=== PATIENT | male | born 1950 | race Caucasian/White ===

== ENCOUNTER → 2023-11-26 17:01 | Outpatient (REF) | payer MEDICARE, OTHER, SELFPAY | LOC: RAD 17:01 | PROVIDERS: ATTENDING PHYSICIAN Internal Medicine | DX: J40 Bronchitis, not specified as acute or chronic (principal) | CPT/HCPCS: 71046 ==

== ENCOUNTER 2024-02-26 13:12 | Emergency (ER) | payer MEDICARE, SELFPAY ==
[2024-02-26 13:13] VITALS: BP 158/80
[2024-02-26 13:31] LABS: % Basophils 0.9 % (0-2); % Immature Granulocytes 0.1 % (0-0.5); % Lymphocytes 19.6 % (20.5-51.1); % Monocytes 9.6 % (1.7-9.3); % Neutrophils 63.8 % (42.2-75.2); Absolute Basophils 0.1 10^3/uL (0-0.2); Absolute Eosinophils 0.5 10^3/uL (0-0.7); Absolute Lymphocytes 1.5 10^3/uL (1.2-3.4); Absolute Monocytes 0.8 10^3/uL (0.1-0.6); Hematocrit 40.2 % (39.0-52.0); Hemoglobin 13.4 g/dL (13.0-18.0); Mean Corp Hgb Conc. 33.3 g/dL (33.0-37.0); Mean Corpuscular Hgb 29.5 pg (27.0-31.0); Mean Corpuscular Volume 88.4 fL (80.0-94.0); Mean Platelet Volume 10.2 fL (7.4-10.4); Nucleated Red Blood Cells % 0 % (-); Platelet Count 160 10^3/uL (130-400); Red Blood Cell Count 4.55 10^6/uL (4.70-6.10); Red Cell Dist. Width 14.3 % (11.5-14.5); White Blood Cell Count 7.8 10^3/uL (4.8-10.8)
[2024-02-26 13:59] LABS: ALT (SGPT) 24 U/L (0-50); AST (SGOT) 24 U/L (17-59); Albumin 4.7 g/dl (3.5-5.0); Alkaline Phosphatase 53 U/L (38-126); Blood Urea Nitrogen 26 mg/dl (9-20); Calcium 9.5 mg/dl (8.4-10.2); Carbon Dioxide 30 mmol/L (22-30); Chloride 104 mmol/L (98-107); Glucose 151 mg/dl (70-99); Potassium 4.6 mmol/L (3.5-5.1); Sodium 142 mmol/L (135-145); Total Bilirubin 0.6 mg/dl (0.2-1.3); eGFR > 60.00
[2024-02-26 15:05] VITALS: BP 133/76
[2024-02-26 15:07] VITALS: BP 133/76
--- NOTE | 2024-02-26 15:14 | ED.GENMED ---
History of Present Illness
<Babatunde Mendez PA-C - Last Filed: 02/26/24 16:38>
General
Chief Complaint: Headache
Source: patient
Time Seen by Provider: 02/26/24 15:08
History of Present Illness
History of Present Illness:
73-year-old male with past medical history of CAD, previous [place], hypertension, hyperlipidemia, peripheral arterial disease presenting to the emergency department for evaluation after he awoke this morning around 5 AM and was doing his usual morning
routine but still felt a little bit tired so went to go lay on his recliner and was then awoken with sensation of tinnitus in his bilateral ears. Patient states throughout the day he has since developed a mild frontal headache and some left-sided
shoulder discomfort prompting him to come to the ER for further evaluation. Symptoms persist although patient notes he did not take anything for his symptoms. Patient notes that he was started on finasteride 3 days ago for prostate issues. He
denies any fevers, chills, rigors focal weakness or numbness, visual disturbances, neck pain or stiffness, traumatic injuries or any other concerns.
Past History
<Babatunde Mendez PA-C - Last Filed: 02/26/24 16:38>
Past History
ED Past Medical History: CAD, COPD, HTN, Hypercholesterolemia, NIDDM and Valvular disease
ED Past Surgical History: Cardiac (CABG), Orthopedic and Other (CEA)
Social History
Tobacco: Smoker
Alcohol: None
Drug: None
Personal:
Living: with family
Review of Systems
<Babatunde Mendez PA-C - Last Filed: 02/26/24 16:38>
Review of Systems
All Other Systems: ROS reviewed and negative except as documented in HPI and ROS
Phy Exam
<Babatunde Mendez PA-C - Last Filed: 02/26/24 16:38>
Physical Exam
Physical Exam:
GENERAL: Alert , in no apparent distress
Head: Normocephalic atraumatic
EYE: conjunctiva clear
NECK: Supple, no significant adenopathy., No carotid bruits, full range of motion without pain
ENT: o/p clr, mmm. TMs clear bilateral, small cerumen in bilateral canals
CARDIAC: Regular rate and rhythm, faint systolic murmur at the right second intercostal space
LUNGS: Clear breath sounds bilaterally, no acute respiratory distress, no wheezes/rales/rhonchi
NEUROLOGICAL: Alert and oriented
SKIN: Warm and dry, skin intact.
MUSCULOSKELETAL: well perfused. Moves all extremities
PSYCH: Normal and appropriate interaction.
Scores
<Babatunde Mendez PA-C - Last Filed: 02/26/24 16:38>
Heart Failure Risk
Heart Failure Risk Score: Not Applicable
Heart Score for Chest Pain Patients
STEMI patient?: Not applicable
Withdrawal Assessment of Alcohol
Withdrawal Assessment Completed?: Not applicable
Course
<Babatunde Mendez PA-C - Last Filed: 02/26/24 16:38>
Orders/Labs/Results
Orders:
Orders
02/26/24 13:17
Electrocardiogram (*1) Urgent
Reason for Study: Chest Pain
EKG- Treatment ONCE
02/26/24 13:23
CMP [Comprehensive Metabolic Panel] Urgent
Complete Blood Count/With Diff Urgent
02/26/24 15:14
CT Head W/o Iv Contrast Urgent
Comment:
Reason For Exam: headache, tinnitus
02/26/24 16:19
Troponin I Urgent
Abnormal Lab Results
02/26/24
13:23
RBC 4.55 L 10^6/uL
(4.70-6.10)
Absolute Monos (auto) 0.8 H 10^3/uL
(0.1-0.6)
Lymphocytes % 19.6 L %
(20.5-51.1)
Monocytes % 9.6 H %
(1.7-9.3)
BUN 26 H mg/dl
(9-20)
Glucose 151 H mg/dl
(70-99)
02/26/24 13:23
02/26/24 13:23
Vital Signs
Initial and Last Documented VS:
Initial Vital Signs
Temp Pulse Resp BP Pulse Ox
98.2 F 80 16 158/80 96
02/26/24 13:13 02/26/24 13:13 02/26/24 13:13 02/26/24 13:13 02/26/24 13:13
Last Documented Vital Signs
Temp Pulse Resp BP Pulse Ox
98.2 F 80 16 153/84 99
02/26/24 13:13 02/26/24 18:31 02/26/24 18:31 02/26/24 18:31 02/26/24 18:31
<Soila Jimenez, [employer] APPRENTICE - Last Filed: 02/26/24 20:47>
Orders/Labs/Results
Orders:
Orders
02/26/24 13:17
Electrocardiogram (*1) Urgent
Reason for Study: Chest Pain
EKG- Treatment ONCE
02/26/24 13:23
CMP [Comprehensive Metabolic Panel] Urgent
Complete Blood Count/With Diff Urgent
02/26/24 15:14
CT Head W/o Iv Contrast Urgent
Comment:
Reason For Exam: headache, tinnitus
02/26/24 16:19
Troponin I Urgent
Abnormal Lab Results
02/26/24
13:23
RBC 4.55 L 10^6/uL
(4.70-6.10)
Absolute Monos (auto) 0.8 H 10^3/uL
(0.1-0.6)
Lymphocytes % 19.6 L %
(20.5-51.1)
Monocytes % 9.6 H %
(1.7-9.3)
BUN 26 H mg/dl
(9-20)
Glucose 151 H mg/dl
(70-99)
02/26/24 13:23
02/26/24 13:23
Vital Signs
Initial and Last Documented VS:
Initial Vital Signs
Temp Pulse Resp BP Pulse Ox
98.2 F 80 16 158/80 96
02/26/24 13:13 02/26/24 13:13 02/26/24 13:13 02/26/24 13:13 02/26/24 13:13
Last Documented Vital Signs
Temp Pulse Resp BP Pulse Ox
98.2 F 80 16 153/84 99
02/26/24 13:13 02/26/24 18:31 02/26/24 18:31 02/26/24 18:31 02/26/24 18:31
<Babatunde Mendez PA-C - Last Filed: 02/26/24 16:38>
MDM/Problems Addressed
Differential Diagnosis Includes:
Tinnitus without specified etiology, carotid aneurysm, infection such as otitis media/externa, atypical ACS presentation
MDM/Problems Addressed:
73-year-old male presenting emergency department for evaluation of tinnitus, headache and left-sided shoulder discomfort that began earlier today with symptoms continuing. Denies any history of similar. Extensive cardiac history and previous
carotid endarterectomy secondary to carotid disease. Exam is reassuring and without any focal findings. Labs have been initiated in triage and are largely unremarkable. I did add on a CT of the head as well as troponin. Reassessment following
Chronic conditions affecting care: DM and CAD
<Soila Jimenez NP - Last Filed: 02/26/24 20:47>
MDM/Problems Addressed
MDM/Problems Addressed:
73-year-old male presenting emergency department for evaluation of tinnitus, headache and left-sided shoulder discomfort that began earlier today with symptoms continuing. Denies any history of similar. Extensive cardiac history and previous
carotid endarterectomy secondary to carotid disease. Exam is reassuring and without any focal findings. Labs have been initiated in triage and are largely unremarkable. I did add on a CT of the head as well as troponin. Reassessment following
6:25 PM:
Received report from GALLITO Lorenzana, patient awaiting head CT
Radiology report read: IMPRESSION: No acute intracranial abnormality noted.
Pt states he feels 'woozy' in his head. No room spinning or lightheadedness.
Flaky dry cerumen in distal ear canals
CN 2-12 intact, finger to nose intact, ambulates well around the room steadily. VSS remain stable, normal. I see no sign of CVA
No focal neurological deficits.
Return instructions reviewed.
He has appointment in 2 days with ENT
<Babatunde Mendez PA-C - Last Filed: 02/26/24 16:38>
*Pulse Oximetry
Patient hypoxic: no
*EKG
Interpreted by ED Provider?: Yes
Heart Rate: 79
Rate: normal
Rhythm: sinus
[place]: normal axis
QRS Pattern: right bundle branch block
Ischemia: no ischemia
<Soila Jimenez [employer] APPRENTICE - Last Filed: 02/26/24 20:47>
*Critical Care Note
Total Time (30-74mins, 75-104mins- exclusive of procedures): Not Applicable
ED Attending Note
<Babatunde Mendez PA-C - Last Filed: 02/26/24 16:38>
-
Portions of this chart may have been created with voice recognition software.� Occasional wrong word or��sound alike� substitutions may have occurred due to the inherent limitations of voice recognition software.
Discharge Plan
Departure
Patient Disposition: Home (Routine Discharge)
Date of Disposition: 02/26/24
Time of Disposition: 18:27
Patient with high blood pressure during this ER visit?: Yes
Condition: Good
Discharge Problem:
Tinnitus
Instructions: Tinnitus (ringing in the ears)
Prescriptions:
No Action
glimepiride 2 MG tablet
2 mg PO BID@0800,1800
dexlansoprazole [Dexilant] 30 MG capsule,biphase delayed releas
60 mg PO DAILY
tamsulosin 0.4 MG capsule
0.4 mg PO QPM
aspirin 81 MG tablet,delayed release (DR/EC)
81 mg PO DAILY
rosuvastatin [Crestor] 40 MG tablet
40 mg PO QPM
ferrous sulfate [FeroSul] 325 MG tablet
325 mg PO DAILY
hydralazine 50 MG tablet
50 mg PO TID
ascorbic acid (vitamin C) [Vitamin C] 500 MG tablet
500 mg PO BID
metoprolol succinate 100 MG tablet extended release 24 hr
100 mg PO BID
clopidogrel 75 MG tablet
75 mg PO DAILY
Jardiance 10 MG tablet
10 mg PO DAILY
nitroglycerin 0.4 MG tablet, sublingual
0.4 mg sublingual [id number] PRN (Reason: chest pain ) 0RF
metformin 1,000 MG tablet
1,000 mg PO BID@0800,1800 Qty: 0 0RF
Hold Instructions: Resume on 06/04/22. HOLD post cath- OK to resume on Sunday 10 in AM
Rx Instructions:
Hold post procedure, resume on Monday 12/04 evening
vitamin D3-folic acid 125 mcg (5,000 unit)-1 mg Tablet
1 tab PO DAILY
coenzyme Q10 100 mg Tablet
100 mg PO QPM
isosorbide mononitrate [isosorbide mononitrate] 30 mg tablet extended release 24 hr
30 mg PO DAILY Qty: 30 5RF
Referrals:
KumarMain Regulo, MD [Family Provider] -
Broderick Day MD [Active] - (ENT)
Activity Restrictions/Additional Instructions:
As we discussed, your head CT shows nothing worrisome.
Your blood work shows nothing worrisome.
Keep your appointment in 2 days with the ENT doctor for the ringing in your ears.
Return here IMMEDIATELY for confusion, difficulty walking, weakness on one side of your body, losing your balance or feeling worse in any way.
Interventions
Interventions:
*Risk Screen - Suicide Last Done: 02/26/24 15:07
*General Assessment Last Done: 02/26/24 13:13
*Neglect/Abuse Screening Last Done: 02/26/24 15:07
ED- Fall Risk Assessment Last Done: 02/26/24 18:40
*ED COVID-19 Vaccine History Last Done: 02/26/24 13:13
*Nursing Disposition Last Done: 02/26/24 18:49
ED- Neurological Assessment Last Done: 02/26/24 15:07
Discharge Date and Time
Discharge Date/Time: 02/26/24 18:49
Print Language: MOLDOVAN
[2024-02-26 16:50] LABS: Troponin I < 0.012 ng/ml
[2024-02-26 17:18] VITALS: BP 140/81
[2024-02-26 18:31] VITALS: BP 153/84
== END 2024-02-26 18:49 | disposition home or self-care (01) ==
LOC: EMR 13:12
PROVIDERS: Emergency Medicine; Physician Assistant Medical; EMERGENCY PHYSICIAN Emergency Medicine; FAMILY PHYSICIAN Internal Medicine
DX: H93.13 Tinnitus, bilateral (principal); M25.512 Pain in left shoulder; R51.9 Headache, unspecified; R42 Dizziness and giddiness; I25.10 Atherosclerotic heart disease of native coronary artery without angina pectoris; I10 Essential (primary) hypertension; E78.00 Pure hypercholesterolemia, unspecified; I73.9 Peripheral vascular disease, unspecified; I45.10 Unspecified right bundle-branch block; J44.9 Chronic obstructive pulmonary disease, unspecified; E11.9 Type 2 diabetes mellitus without complications; F17.200 Nicotine dependence, unspecified, uncomplicated; I25.2 Old myocardial infarction; Z95.1 Presence of aortocoronary bypass graft; Z88.8 Allergy status to other drugs, medicaments and biological substances; Z79.82 Long term (current) use of aspirin
CPT/HCPCS: 99284; 70450; 80053; 84484; 85025; 93005

== ENCOUNTER 2024-03-04 14:05 | Emergency (ER) | payer MEDICARE, SELFPAY ==
[2024-03-04 14:17] VITALS: BP 157/79
--- NOTE | 2024-03-04 16:06 | ED.GENMED ---
History of Present Illness
General
Chief Complaint: Fall
Source: patient
Exam Limitations: none
Time Seen by Provider: 03/04/24 15:41
Nursing documentation reviewed up to this point in time: agreed with
History of Present Illness
History of Present Illness:
Patient is a 73-year-old male who was walking and tripped over a curb fell onto the sidewalk. He did hit his head, his upper lip his right wrist left shoulder and left knee and right elbow. He denies any loss of consciousness. He sustained
abrasions to his upper lip and left knee. His last tetanus under 5 years. He is on Plavix. He denies any headache. Denies any neck pain. He drove himself here.
Past History
Past History
ED Past Medical History: CAD, COPD, HTN, Hypercholesterolemia, NIDDM and Valvular disease
ED Past Surgical History: Cardiac (CABG), Orthopedic and Other (CEA)
Social History
Tobacco: Smoker
Alcohol: None
Drug: None
Personal:
Living: with family
Review of Systems
Review of Systems
Allergies reviewed?: Yes
All Other Systems: ROS reviewed and negative except as documented in HPI and ROS
Constitutional: Reports no symptoms
Respiratory: Reports no symptoms
Cardiac: Reports no symptoms
ABD/GI: Reports no symptoms; Denies nausea or vomiting
: Reports no symptoms
Musculoskeletal: Reports other (Left knee discomfort left shoulder discomfort right wrist/elbow discomfort )
Skin: Reports other (Abrasions)
Neurological: Reports weakness; Denies headache
Endocrine: Reports no symptoms
Hematologic/Lymphatic: Reports no symptoms
Psychiatric: Reports no symptoms
Phy Exam
General Physical Exam
General Presentation: no apparent distress
General age: appears stated age
General Skin: warm and dry
General Habitus: elderly
General Mental: alert
General Hydration: appears well hydrated
ENT Exam
ENT Exam: other (Right upper lip contused with ecchymosis and swelling + abrasion )
Eye Exam
Eye Exam: PERRL and EOMI
Eye Exam General: PERRL: bilateral and EOM intact: bilateral
Pupil Exam: Bilateral: round and reactive
Neurological Exam
Neurological Exam: alert and oriented x3
Musculoskeletal Exam
Musculoskeletal Exam: other (Right wrist swollen and tender throughout left shoulder no obvious swelling or ecchymosis pain with range of motion, no obvious swelling to left knee positive abrasion just below left knee right elbow mildly tender red,
no abrasions full rom )
Skin Exam
Skin Exam: normal color and warm/dry
Psychiatric Exam
Psychiatric Exam: normal mood/affect
Course
Orders/Labs/Results
Orders:
Orders
03/04/24 16:10
CT Head W/o Iv Contrast Urgent
Comment:
Reason For Exam: trauma
Knee, Left 4 or More Views [CR Knee - Left 4 Or More View*] Urgent
Comment:
Reason For Exam: trauma
Shoulder, Left, Trauma CR [CR Shoulder, Trauma - Left] Urgent
Comment:
Reason For Exam: trauma
Wrist, Right 3 Views [CR Wrist - Right Min 3 Views] Urgent
Comment:
Reason For Exam: trauma
03/04/24 16:11
CT Cervical Spine W/o Iv Contr Urgent
Comment:
Reason For Exam: trauma
03/04/24 16:13
Elbow, Right 3 View [CR Elbow - Right Min 3 Views] Urgent
Comment:
Reason For Exam: trauma
03/04/24 17:19
CR Hand - Right Min 3 Views Urgent
Reason For Exam: SWELLING
Vital Signs
Initial and Last Documented VS:
Initial Vital Signs
Temp Pulse Resp BP Pulse Ox
98.6 F 82 14 157/79 96
03/04/24 14:17 03/04/24 14:17 03/04/24 14:17 03/04/24 14:17 03/04/24 14:17
Last Documented Vital Signs
Temp Pulse Resp BP Pulse Ox
98.6 F 82 14 157/79 98
03/04/24 14:17 03/04/24 14:17 03/04/24 14:17 03/04/24 14:17 03/04/24 17:43
MDM/Problems Addressed
Differential Diagnosis Includes:
Not limited to head injury, fractures for sprain versus contusion
MDM/Problems Addressed:
Patient is a 73-year-old male who describes mechanical fall and fell onto his left knee left shoulder right elbow right wrist and hand. He did hit his head and lip. He has bruising to his upper lip small abrasion but no laceration that required
suturing. He denies loss of conscious. He is on Plavix. He presents awake alert no acute distress oriented. No obvious fractures on x-ray. Patient swelling to right wrist but no obvious fracture will place in a universal splint for support and
ice area. He has been evaluated by orthopedics, Dr. Masters in the past will DC back to Ortho if continued pain. He is awake alert no acute distress with a normal neurologic exam.
*Radiology
Radiology exam reviewed: radiology read reviewed
*Pulse Oximetry
Patient hypoxic: no
*Critical Care Note
Total Time (30-74mins, 75-104mins- exclusive of procedures): Not Applicable
ED Attending Note
-
Portions of this chart may have been created with voice recognition software.� Occasional wrong word or��sound alike� substitutions may have occurred due to the inherent limitations of voice recognition software.
Discharge Plan
Departure
Patient Disposition: Home (Routine Discharge)
Date of Disposition: 03/04/24
Time of Disposition: 17:53
Patient with high blood pressure during this ER visit?: Yes
Condition: Fair
Covid-19: Not Applicable
Discharge Problem:
Sprain, Contusion, Abrasion
Instructions: Contusion (DC), Sprain (DC), BLOOD PRESSURE
Prescriptions:
No Action
glimepiride 2 MG tablet
2 mg PO BID@0800,1800
dexlansoprazole [Dexilant] 30 MG capsule,biphase delayed releas
60 mg PO DAILY
tamsulosin 0.4 MG capsule
0.4 mg PO QPM
aspirin 81 MG tablet,delayed release (DR/EC)
81 mg PO DAILY
rosuvastatin [Crestor] 40 MG tablet
40 mg PO QPM
ferrous sulfate [FeroSul] 325 MG tablet
325 mg PO DAILY
hydralazine 50 MG tablet
50 mg PO TID
ascorbic acid (vitamin C) [Vitamin C] 500 MG tablet
500 mg PO BID
metoprolol succinate 100 MG tablet extended release 24 hr
100 mg PO BID
clopidogrel 75 MG tablet
75 mg PO DAILY
Jardiance 10 MG tablet
10 mg PO DAILY
nitroglycerin 0.4 MG tablet, sublingual
0.4 mg sublingual [id number] PRN (Reason: chest pain ) 0RF
metformin 1,000 MG tablet
1,000 mg PO BID@0800,1800 Qty: 0 0RF
Hold Instructions: Resume on 06/04/22. HOLD post cath- OK to resume on Monday 06/04 in AM
Rx Instructions:
Hold post procedure, resume on Monday 12/04 evening
vitamin D3-folic acid 125 mcg (5,000 unit)-1 mg Tablet
1 tab PO DAILY
coenzyme Q10 100 mg Tablet
100 mg PO QPM
isosorbide mononitrate [isosorbide mononitrate] 30 mg tablet extended release 24 hr
30 mg PO DAILY Qty: 30 5RF
Referrals:
Juan Masters MD [Active] -
Main Kumar MD [Family Provider] -
Activity Restrictions/Additional Instructions:
As discussed ice affected areas for the first 24 hours 20 minutes at a time several times a day. You were given a preformed wrist splint for support. Use as needed. Follow-up with family doctor in the next as well as orthopedics if needed peer
return if any worsening of symptoms.
Interventions
Interventions:
*Risk Screen - Suicide Last Done: 03/04/24 14:17
*General Assessment Last Done: 03/04/24 14:17
*Neglect/Abuse Screening Last Done: 03/04/24 14:17
*ED COVID-19 Vaccine History Last Done: 03/04/24 17:42
ED-Musculoskeletal Assessment Last Done: 03/04/24 17:46
ED- Neurological Assessment Last Done: 03/04/24 17:42
ED-Skin Assessment Last Done: 03/04/24 17:45
Discharge Date and Time
Print Language: MALTESE
[2024-03-04 17:41] VITALS: BP 198/98
[2024-03-04 17:42] VITALS: BMI 28.3
[2024-03-04] MEDS: TYLENOL 650 MG PO (17:55)
== END 2024-03-04 18:21 | disposition home or self-care (01) ==
LOC: EMR 14:05
PROVIDERS: EMERGENCY PHYSICIAN Emergency Medicine; FAMILY PHYSICIAN Internal Medicine
DX: S63.501A Unspecified sprain of right wrist, initial encounter (principal); S09.90XA Unspecified injury of head, initial encounter; S00.531A Contusion of lip, initial encounter; S80.212A Abrasion, left knee, initial encounter; S00.511A Abrasion of lip, initial encounter; M25.462 Effusion, left knee; M25.512 Pain in left shoulder; M25.521 Pain in right elbow; M25.531 Pain in right wrist; W10.1XXA Fall (on)(from) sidewalk curb, initial encounter; Y93.01 Activity, walking, marching and hiking; Y92.480 Sidewalk as the place of occurrence of the external cause; I25.10 Atherosclerotic heart disease of native coronary artery without angina pectoris; I10 Essential (primary) hypertension; E78.00 Pure hypercholesterolemia, unspecified; E11.9 Type 2 diabetes mellitus without complications; J44.9 Chronic obstructive pulmonary disease, unspecified; I38 Endocarditis, valve unspecified; K76.0 Fatty (change of) liver, not elsewhere classified; M19.90 Unspecified osteoarthritis, unspecified site; I25.2 Old myocardial infarction; Z95.1 Presence of aortocoronary bypass graft; Z79.02 Long term (current) use of antithrombotics/antiplatelets; Z79.84 Long term (current) use of oral hypoglycemic drugs; Z95.5 Presence of coronary angioplasty implant and graft; Z87.820 Personal history of traumatic brain injury; Z87.891 Personal history of nicotine dependence; Z86.16 Personal history of COVID-19
CPT/HCPCS: 99284; 29125; 70450; 72125; 73030; 73080; 73110; 73130; 73564

== ENCOUNTER → 2024-03-11 10:59 | Outpatient (REF) | payer MEDICARE, SELFPAY | LOC: RAD 10:59 | PROVIDERS: ATTENDING PHYSICIAN Internal Medicine | DX: R52 Pain, unspecified (principal) | CPT/HCPCS: 71101 ==

== ENCOUNTER → 2024-05-07 16:44 | Outpatient (REF) | payer MEDICARE, SELFPAY | LOC: PAVMRI 16:44 | PROVIDERS: ATTENDING PHYSICIAN Orthopaedic Surgery; FAMILY PHYSICIAN Internal Medicine | DX: M25.512 Pain in left shoulder (principal) | CPT/HCPCS: 73221 ==

== ENCOUNTER → 2024-05-12 18:12 | Outpatient (REF) | payer MEDICARE, SELFPAY | LOC: MRI 3T 18:12 | PROVIDERS: ATTENDING PHYSICIAN Specialist; FAMILY PHYSICIAN Internal Medicine | DX: R97.20 Elevated prostate specific antigen [PSA] (principal) | CPT/HCPCS: 72197; A9575 ==

== ENCOUNTER 2024-07-01 18:56 | Outpatient (RCR) | payer MEDICARE, SELFPAY | END 2024-07-01 23:59 | disposition home or self-care (01) | LOC: ROT 18:56 | PROVIDERS: ATTENDING PHYSICIAN Physical Medicine & Rehabilitation; FAMILY PHYSICIAN Internal Medicine; REFERRING PHYSICIAN Orthopaedic Surgery | DX: S86.812D Strain of other muscle(s) and tendon(s) at lower leg level, left leg, subsequent encounter (principal); M54.2 Cervicalgia; F07.81 Postconcussional syndrome; Z73.6 Limitation of activities due to disability; S86.10 Unspecified injury of other muscle(s) and tendon(s) of posterior muscle group at lower leg level; M25.522 Pain in left elbow | CPT/HCPCS: 97010; 97022; 97110; 97112; 97140; 97162; 97166; 97535 ==

== ENCOUNTER 2024-08-01 09:07 | Outpatient (RCR) | payer MEDICARE, SELFPAY | END 2024-08-01 23:59 | disposition home or self-care (01) | LOC: RST 09:07 | PROVIDERS: ATTENDING PHYSICIAN Physical Medicine & Rehabilitation; FAMILY PHYSICIAN Internal Medicine; REFERRING PHYSICIAN Orthopaedic Surgery | DX: M54.2 Cervicalgia (principal); S46.812D Strain of other muscles, fascia and tendons at shoulder and upper arm level, left arm, subsequent encounter; F07.81 Postconcussional syndrome; Z73.6 Limitation of activities due to disability; R26.2 Difficulty in walking, not elsewhere classified; M62.81 Muscle weakness (generalized); R41.89 Other symptoms and signs involving cognitive functions and awareness | CPT/HCPCS: 96125; 97010; 97022; 97035; 97110; 97112; 97129; 97130; 97140 ==

== ENCOUNTER → 2024-08-13 08:25 | Outpatient (REF) | payer MEDICARE, SELFPAY | LOC: HWRCS 08:25 | PROVIDERS: ATTENDING PHYSICIAN Internal Medicine; FAMILY PHYSICIAN Internal Medicine | DX: I25.118 Atherosclerotic heart disease of native coronary artery with other forms of angina pectoris (principal); I10 Essential (primary) hypertension; I45.10 Unspecified right bundle-branch block; R06.09 Other forms of dyspnea | CPT/HCPCS: 93306 ==

== ENCOUNTER → 2024-08-28 08:08 | Outpatient (REF) | payer MEDICARE, SELFPAY ==
[2024-08-28 10:35] LABS: ALT (SGPT) 24 U/L (0-50); AST (SGOT) 20 U/L (17-59); HDL Cholesterol 47 mg/dl; LDL Cholesterol, Calculated 52 mg/dl; Total Cholesterol 146 mg/dl (50-199); Triglyceride 236 mg/dl (10-149); Very Low Density Lipoprotein 47 mg/dl (0-30)
[2024-08-29 09:06] LABS: PSA Total 9.4 ng/mL (0.0-4.0)
== END ==
LOC: RAD 08:08
PROVIDERS: ATTENDING PHYSICIAN Internal Medicine
DX: I73.9 Peripheral vascular disease, unspecified (principal); Z98.890 Other specified postprocedural states; I65.21 Occlusion and stenosis of right carotid artery; I25.118 Atherosclerotic heart disease of native coronary artery with other forms of angina pectoris
CPT/HCPCS: 36415; 80061; 84153; 84154; 84450; 84460; 93880; 93922; 93925

== ENCOUNTER 2024-09-01 07:12 | Outpatient (RCR) | payer MEDICARE, SELFPAY | END 2024-09-01 23:59 | disposition home or self-care (01) | LOC: RST 07:12 | PROVIDERS: ATTENDING PHYSICIAN Physical Medicine & Rehabilitation; FAMILY PHYSICIAN Internal Medicine; REFERRING PHYSICIAN Orthopaedic Surgery | DX: M54.2 Cervicalgia (principal); S46.812D Strain of other muscles, fascia and tendons at shoulder and upper arm level, left arm, subsequent encounter; F07.81 Postconcussional syndrome; Z73.6 Limitation of activities due to disability; R26.2 Difficulty in walking, not elsewhere classified; M62.81 Muscle weakness (generalized); R41.89 Other symptoms and signs involving cognitive functions and awareness | CPT/HCPCS: 97010; 97110; 97129; 97130 ==

== ENCOUNTER 2024-10-03 07:12 | Outpatient (RCR) | payer MEDICARE, SELFPAY | END 2024-10-03 23:59 | disposition home or self-care (01) | LOC: RST 07:12 | PROVIDERS: ATTENDING PHYSICIAN Physical Medicine & Rehabilitation; FAMILY PHYSICIAN Internal Medicine; REFERRING PHYSICIAN Orthopaedic Surgery | DX: M54.2 Cervicalgia (principal); R47.02 Dysphasia (principal); R41.9 Unspecified symptoms and signs involving cognitive functions and awareness; S46.812D Strain of other muscles, fascia and tendons at shoulder and upper arm level, left arm, subsequent encounter; F07.81 Postconcussional syndrome; Z73.6 Limitation of activities due to disability; R26.2 Difficulty in walking, not elsewhere classified; M62.81 Muscle weakness (generalized); R41.89 Other symptoms and signs involving cognitive functions and awareness | CPT/HCPCS: 97129; 97130 ==

== ENCOUNTER 2024-10-31 08:45 | Outpatient (RCR) | payer MEDICARE, SELFPAY | END 2024-10-31 23:59 | disposition home or self-care (01) | LOC: ROT 08:45 | PROVIDERS: ATTENDING PHYSICIAN Psychiatry & Neurology Neurology; FAMILY PHYSICIAN Internal Medicine; REFERRING PHYSICIAN Physical Medicine & Rehabilitation | DX: R47.02 Dysphasia (principal); R41.9 Unspecified symptoms and signs involving cognitive functions and awareness; F07.81 Postconcussional syndrome; M54.2 Cervicalgia; S46.812D Strain of other muscles, fascia and tendons at shoulder and upper arm level, left arm, subsequent encounter; Z73.6 Limitation of activities due to disability; R26.2 Difficulty in walking, not elsewhere classified; M62.81 Muscle weakness (generalized); R41.89 Other symptoms and signs involving cognitive functions and awareness | CPT/HCPCS: 97110; 97129; 97130; 97167; 97535 ==

== ENCOUNTER 2024-11-21 05:59 | Day surgery (SDC) | payer MEDICARE, SELFPAY ==
[2024-11-21 07:43] VITALS: BMI 28.3
[2024-11-21 08:05] VITALS: BP 176/95
[2024-11-21 08:05] LABS: Glucose - Point of Care 134 mg/dl (70-99)
[2024-11-21 08:21] VITALS: BMI 28.3
[2024-11-21 10:00] VITALS: BP 119/64
[2024-11-21 10:05] LABS: Glucose - Point of Care 122 mg/dl (70-99)
[2024-11-21 10:15] VITALS: BP 143/75
[2024-11-21 10:30] VITALS: BP 173/91
== END 2024-11-21 10:50 | disposition home or self-care (01) ==
LOC: SDS 05:59
PROVIDERS: ATTENDING PHYSICIAN Internal Medicine Gastroenterology; FAMILY PHYSICIAN Internal Medicine
DX: Z12.11 Encounter for screening for malignant neoplasm of colon (principal); K57.30 Diverticulosis of large intestine without perforation or abscess without bleeding; D12.3 Benign neoplasm of transverse colon; D12.2 Benign neoplasm of ascending colon; K63.5 Polyp of colon; K52.89 Other specified noninfective gastroenteritis and colitis; K63.89 Other specified diseases of intestine; K22.89 Other specified disease of esophagus; K44.9 Diaphragmatic hernia without obstruction or gangrene; K31.89 Other diseases of stomach and duodenum; K22.70 Barrett's esophagus without dysplasia; Z86.0101 Personal history of adenomatous and serrated colon polyps
CPT/HCPCS: 45385; 45380; 43239; 88305; 82962

== ENCOUNTER 2024-12-01 06:19 | Outpatient (RCR) | payer MEDICARE, SELFPAY | END 2024-12-01 23:59 | disposition home or self-care (01) | LOC: ROT 06:19 | PROVIDERS: ATTENDING PHYSICIAN Psychiatry & Neurology Neurology; FAMILY PHYSICIAN Internal Medicine; REFERRING PHYSICIAN Physical Medicine & Rehabilitation | DX: R47.02 Dysphasia (principal); R41.9 Unspecified symptoms and signs involving cognitive functions and awareness; F07.81 Postconcussional syndrome; M54.2 Cervicalgia; S46.812D Strain of other muscles, fascia and tendons at shoulder and upper arm level, left arm, subsequent encounter; Z73.6 Limitation of activities due to disability; R26.2 Difficulty in walking, not elsewhere classified; M62.81 Muscle weakness (generalized); R41.89 Other symptoms and signs involving cognitive functions and awareness | CPT/HCPCS: 97110; 97129; 97130; 97530; 97535 ==

== ENCOUNTER → 2024-12-15 10:09 | Outpatient (REF) | payer MEDICARE, SELFPAY ==
[2024-12-15 15:35] LABS: Blood Urea Nitrogen 23 mg/dl (9-20)
== END ==
LOC: REG 10:09
PROVIDERS: ATTENDING PHYSICIAN Internal Medicine Gastroenterology; FAMILY PHYSICIAN Internal Medicine
DX: R10.32 Left lower quadrant pain (principal)
CPT/HCPCS: 36415; 82565; 84520

== ENCOUNTER → 2024-12-17 11:45 | Outpatient (REF) | payer MEDICARE, SELFPAY | LOC: RAD 11:45 | PROVIDERS: ATTENDING PHYSICIAN Internal Medicine Gastroenterology; FAMILY PHYSICIAN Internal Medicine; OTHER PHYSICIAN Internal Medicine | DX: R10.32 Left lower quadrant pain (principal) | CPT/HCPCS: 74177; Q9967 ==

== ENCOUNTER 2024-12-29 07:28 | Outpatient (RCR) | payer MEDICARE, SELFPAY | END 2024-12-29 23:59 | disposition home or self-care (01) | LOC: ROT 07:28 | PROVIDERS: ATTENDING PHYSICIAN Psychiatry & Neurology Neurology; FAMILY PHYSICIAN Internal Medicine; REFERRING PHYSICIAN Physical Medicine & Rehabilitation | DX: R47.02 Dysphasia (principal); R41.9 Unspecified symptoms and signs involving cognitive functions and awareness; F07.81 Postconcussional syndrome; M54.2 Cervicalgia; S46.812D Strain of other muscles, fascia and tendons at shoulder and upper arm level, left arm, subsequent encounter; Z73.6 Limitation of activities due to disability; R26.2 Difficulty in walking, not elsewhere classified; M62.81 Muscle weakness (generalized); R41.89 Other symptoms and signs involving cognitive functions and awareness | CPT/HCPCS: 97110; 97129; 97130; 97530 ==

== ENCOUNTER → 2025-01-19 10:03 | Outpatient (REF) | payer MEDICARE, SELFPAY | LOC: RAD 10:03 | PROVIDERS: ATTENDING PHYSICIAN Specialist; FAMILY PHYSICIAN Internal Medicine | DX: N20.0 Calculus of kidney (principal) | CPT/HCPCS: 74018 ==

== ENCOUNTER 2025-01-28 06:56 | Outpatient (RCR) | payer MEDICARE, SELFPAY | END 2025-01-29 08:19 | disposition home or self-care (01) | LOC: ROT 06:56 | PROVIDERS: ATTENDING PHYSICIAN Psychiatry & Neurology Neurology; FAMILY PHYSICIAN Internal Medicine; REFERRING PHYSICIAN Physical Medicine & Rehabilitation | DX: F07.81 Postconcussional syndrome (principal); R47.02 Dysphasia; R41.9 Unspecified symptoms and signs involving cognitive functions and awareness; M54.2 Cervicalgia; Z73.6 Limitation of activities due to disability; R26.2 Difficulty in walking, not elsewhere classified; M62.81 Muscle weakness (generalized); R41.89 Other symptoms and signs involving cognitive functions and awareness; S46.812D Strain of other muscles, fascia and tendons at shoulder and upper arm level, left arm, subsequent encounter | CPT/HCPCS: 97110 ==

== ENCOUNTER → 2025-04-08 08:25 | Outpatient (REF) | payer MEDICARE, SELFPAY | LOC: PAVMRI 08:25 | PROVIDERS: ATTENDING PHYSICIAN Psychiatry & Neurology Neurology; FAMILY PHYSICIAN Internal Medicine | DX: G44.89 Other headache syndrome (principal); R42 Dizziness and giddiness; R41.3 Other amnesia | CPT/HCPCS: 70551 ==

== ENCOUNTER 2025-04-14 14:29 | Emergency (ER) | payer MEDICARE, SELFPAY ==
[2025-04-14 14:40] VITALS: BP 161/82
[2025-04-14 19:42] VITALS: BP 178/83
[2025-04-14 19:45] VITALS: BMI 28.3
--- NOTE | 2025-04-14 20:46 | ED.GENMED ---
History of Present Illness
General
Chief Complaint: DVT/Possible Blood Clot
Time Seen by Provider: 04/14/25 18:44
History of Present Illness
History of Present Illness:
see MDM
Past History
Past History
ED Past Medical History: CAD, COPD, HTN, Hypercholesterolemia, NIDDM and Valvular disease
ED Past Surgical History: Cardiac (CABG), Orthopedic and Other (CEA)
Social History
Tobacco: Smoker
Alcohol: None
Drug: None
Personal:
Living: with family
Phy Exam
Physical Exam
Physical Exam:
GENERAL: Alert , in no apparent distress, comfortable at rest
HEAD: NCAT
CV: 1+ DP PULSES B/L palpable, though diminished
NEUROLOGICAL: Alert and oriented, no focal neuro deficits, , 5/5 strength, sensation intact, ambulation slight limp left leg
SKIN: Warm and dry, normal skin to leg/foot
MUSCULOSKELETAL: L thigh and leg normal appearance
mild pain with L knee flexion and pain in L thigh with hip flexion
calf soft
nontendre
normal foot
able to walk wwith cane
PSYCH: Normal and appropriate interaction.
Course
Orders/Labs/Results
Orders:
Orders
04/14/25 14:41
Legs, left US [US Periph Venous LOWER Ext LT] Urgent
Comment:
Reason For Exam: calf pain
04/14/25 19:13
CR Femur - Left Min 2 Vw Urgent
Comment:
Reason For Exam: left leg pain
Vital Signs
Initial and Last Documented VS:
Initial Vital Signs
Temp Pulse Resp BP Pulse Ox
36.8 C 80 16 161/82 95
04/14/25 14:40 04/14/25 14:40 04/14/25 14:40 04/14/25 14:40 04/14/25 14:40
Last Documented Vital Signs
Temp Pulse Resp BP Pulse Ox
36.8 C 85 18 178/83 98
04/14/25 14:40 04/14/25 19:42 04/14/25 19:42 04/14/25 19:42 04/14/25 19:42
MDM/Problems Addressed
Differential Diagnosis Includes:
see MDM
MDM/Problems Addressed:
Note:
CHIEF COMPLAINT(S)
Persistent pain in the left leg, worsening over time.
HISTORY OF PRESENT ILLNESS
The patient is a 74-year-old male with a history of diabetes who presents with persistent pain in the left leg. The symptoms have been worsening since a fall in March last year, during which he injured his knee. Since the fall, the patient describes
'on and off' pain in the knee and left leg, now becoming constant. He mentioned receiving unspecified shots in his knee at a [facility], which he got 1 mo ago, but the relief was not significant. 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 The is particularly concerned about a blood clot because of the patients diabetic condition. The patient reports having an ultrasound showing negative results for clotting. There is
hesitancy on the patients part regarding regular medication due to the fear of a blood clot.
The patient reports recently increased pain, particularly today, which led to this emergency visit. He consistently uses a cane and mentions it also hurts when laid down or when the leg is bent. He denies taking pain medications currently. The
patient experiences feelings of pain 'all the way up' to the left leg, requiring further evaluation he is not having claudication symptoms; has pain in the joints with movement of the leg. The patient uses a cane regularly to assist with ambulation.
PHYSICAL EXAM
- Musculoskeletal: Complaints of pain throughout the left leg, exacerbated by movement and at rest. No specific mention of swelling or deformity.
- Vascular: Pulse examination indicates potential peripheral vascular limitations.
Nursing notes reviewed, and vital signs were reviewed.
PLAN
Arrange for an x-ray of the left leg to determine the presence of arthritis or muscular issues.
DIFFERENTIAL DIAGNOSIS
The Differential Diagnosis includes, in no particular order and is not limited to:
1. Osteoarthritis
2. Peripheral vascular disease
3. Muscle strain
4. Tendinitis
5. Deep vein thrombosis (despite negative ultrasound)
6. Bakers cyst
7. Nerve impingement
8. Lumbar radiculopathy
9. Diabetic neuropathy
10. Fracture or previous bone injury effects
CARE-UPDATE
04/14/25 - 20:05
Patient has been reassessed and findings confirm degenerative changes in both hip and knee joints, consistent with arthritis, but no blood clots are present. The femur bone appears intact without fractures. The patient reports persistent pain,
potentially related to neuropathy, and mentions having seen multiple doctors for this issue. The patient is cleared for discharge and will be picked up by his son. There is no indication of immediate complications that would prevent being discharged
at this time.
*Pulse Oximetry
SaO2: 98
Oxygen Mode of Delivery: Room air
Patient hypoxic: no (98)
*Critical Care Note
Total Time (30-74mins, 75-104mins- exclusive of procedures): Not Applicable
ED Attending Note
-
Portions of this chart may have been created with voice recognition software.� Occasional wrong word or��sound alike� substitutions may have occurred due to the inherent limitations of voice recognition software.
Discharge Plan
Departure
Patient Disposition: Home (Routine Discharge)
Date of Disposition: 04/14/25
Time of Disposition: 20:03
Patient with high blood pressure during this ER visit?: Yes
Condition: Fair
Covid-19: Not Applicable
Discharge Problem:
Leg pain
Instructions: Muscle, joint, and bone pain - Discharge instructions
Prescriptions:
No Action
glimepiride 2 MG tablet
2 mg PO BID@0800,1800
dexlansoprazole [Dexilant] 30 MG capsule,biphase delayed releas
60 mg PO DAILY
tamsulosin 0.4 MG capsule
0.4 mg PO QPM
aspirin 81 MG tablet,delayed release (DR/EC)
81 mg PO DAILY
rosuvastatin [Crestor] 40 MG tablet
40 mg PO QPM
ferrous sulfate [FeroSul] 325 MG tablet
325 mg PO DAILY
hydralazine 50 MG tablet
50 mg PO TID
ascorbic acid (vitamin C) [Vitamin C] 500 MG tablet
500 mg PO BID
metoprolol succinate 100 MG tablet extended release 24 hr
100 mg PO BID
clopidogrel 75 MG tablet
75 mg PO DAILY
Jardiance 10 MG tablet
10 mg PO DAILY
nitroglycerin 0.4 MG tablet, sublingual
0.4 mg sublingual [id number] PRN (Reason: chest pain ) 0RF
metformin 1,000 MG tablet
1,000 mg PO BID@0800,1800 Qty: 0 0RF
Rx Instructions:
Hold post procedure, resume on Sunday 4/ evening
vitamin D3-folic acid 125 mcg (5,000 unit)-1 mg Tablet
1 tab PO DAILY
coenzyme Q10 100 mg Tablet
100 mg PO QPM
isosorbide mononitrate [isosorbide mononitrate] 30 mg tablet extended release 24 hr
30 mg PO DAILY Qty: 30 5RF
Referrals:
Main Kumar MD [Family Provider, Internal Medicine]
Activity Restrictions/Additional Instructions:
Your x-ray of your hip and knee shows arthritis but there is no blood clot in the leg on the ultrasound. Follow-up with your orthopedist and your family doctor. Continue your pain medications as prescribed. Return for any concerns
Interventions
Interventions:
*Risk Screen - Suicide Last Done: 04/14/25 14:40
*General Assessment Last Done: 04/14/25 19:45
*Neglect/Abuse Screening Last Done: 04/14/25 14:40
*ED- Fall Risk Assessment Last Done: 04/14/25 19:45
*ED COVID-19 Vaccine History Last Done: 04/14/25 19:45
*Nursing Disposition Last Done: 04/14/25 20:30
ED- Cardiac Assessment Last Done: 04/14/25 19:46
ED- Pulmonary Assessment Last Done: 04/14/25 19:46
ED-Peripheral Vascular Assessment Last Done: 04/14/25 19:46
ED-Skin Assessment Last Done: 04/14/25 19:46
Discharge Date and Time
Discharge Date/Time: 04/14/25 20:31
Print Language: CZECH
== END 2025-04-14 20:31 | disposition home or self-care (01) ==
LOC: EMR 14:29
PROVIDERS: EMERGENCY PHYSICIAN Emergency Medicine; FAMILY PHYSICIAN Internal Medicine
DX: M79.662 Pain in left lower leg (principal); E11.9 Type 2 diabetes mellitus without complications; I25.810 Atherosclerosis of coronary artery bypass graft(s) without angina pectoris; I10 Essential (primary) hypertension; E78.00 Pure hypercholesterolemia, unspecified; J44.9 Chronic obstructive pulmonary disease, unspecified; M17.0 Bilateral primary osteoarthritis of knee; M16.0 Bilateral primary osteoarthritis of hip; F17.200 Nicotine dependence, unspecified, uncomplicated; Z79.84 Long term (current) use of oral hypoglycemic drugs; Z79.82 Long term (current) use of aspirin; Z79.02 Long term (current) use of antithrombotics/antiplatelets; Z95.1 Presence of aortocoronary bypass graft
CPT/HCPCS: 99284; 73552; 93971

== ENCOUNTER 2025-05-01 06:36 | Outpatient (RCR) | payer MEDICARE, SELFPAY | END 2025-05-01 23:59 | disposition home or self-care (01) | LOC: RST 06:36 | PROVIDERS: ATTENDING PHYSICIAN Psychiatry & Neurology Neurology | DX: R41.89 Other symptoms and signs involving cognitive functions and awareness (principal); R47.02 Dysphasia; F07.81 Postconcussional syndrome; Z91.81 History of falling | CPT/HCPCS: 96125; 97129; 97130 ==

== ENCOUNTER → 2025-05-07 08:55 | Outpatient (REF) | payer MEDICARE, SELFPAY | LOC: EMG 08:55 | PROVIDERS: ATTENDING PHYSICIAN Orthopaedic Surgery; FAMILY PHYSICIAN Internal Medicine | DX: M65.322 Trigger finger, left index finger (principal); M79.642 Pain in left hand; M65.332 Trigger finger, left middle finger; M79.641 Pain in right hand; R20.0 Anesthesia of skin | CPT/HCPCS: 95886; 95911 ==

== ENCOUNTER → 2025-05-17 09:00 | Outpatient (REF) | payer MEDICARE, SELFPAY | LOC: RCS 09:00 | PROVIDERS: ATTENDING PHYSICIAN Internal Medicine; FAMILY PHYSICIAN Internal Medicine | DX: I48.0 Paroxysmal atrial fibrillation (principal); I49.9 Cardiac arrhythmia, unspecified | CPT/HCPCS: 93225; 93226 ==

== ENCOUNTER 2025-06-01 08:30 | Outpatient (RCR) | payer MEDICARE, SELFPAY | END 2025-06-01 23:59 | disposition home or self-care (01) | LOC: RST 08:30 | PROVIDERS: ATTENDING PHYSICIAN Psychiatry & Neurology Neurology | DX: R41.89 Other symptoms and signs involving cognitive functions and awareness (principal); R47.02 Dysphasia; F07.81 Postconcussional syndrome; Z91.81 History of falling | CPT/HCPCS: 97129; 97130 ==

== ENCOUNTER 2025-07-01 07:37 | Outpatient (RCR) | payer MEDICARE, SELFPAY | END 2025-07-01 23:59 | disposition home or self-care (01) | LOC: RST 07:37 | PROVIDERS: ATTENDING PHYSICIAN Psychiatry & Neurology Neurology | DX: R41.89 Other symptoms and signs involving cognitive functions and awareness (principal); R47.02 Dysphasia; F07.81 Postconcussional syndrome; Z91.81 History of falling | CPT/HCPCS: 97129; 97130 ==

== ENCOUNTER 2025-07-09 06:23 | Day surgery (SDC) | payer MEDICARE, SELFPAY ==
[2025-07-09] VITALS (19 sets, daily range): BP systolic 130–194; BP diastolic 68–102; BMI 30.8
[2025-07-09] MEDS: NSS 267 ML IV (07:18)
[2025-07-09 07:26] LABS: Glucose - Point of Care 171 mg/dl (70-99)
[2025-07-09] MEDS: NSS 1000 IV (09:58)
[2025-07-09 10:16] LABS: Glucose - Point of Care 192 mg/dl (70-99)
[2025-07-09] MEDS: NITROLINGUAL SPRAY 1 BOTTLE SL ×2 (10:22→10:28)
[2025-07-09] MEDS: NORVASC 5 MG PO (10:36)
--- NOTE | 2025-07-09 14:30 | CM ---
Chart reviewed. Patient OOB sitting in the chair. Patient independent of ADLS, lives in a 1 STH, 4-5 [facility], 0 DME. Plan is for the patient to return home. CM to follow
--- NOTE | 2025-07-09 14:38 | PTCARENOTE ---
Received pt from [facility] into 2245. Pt is AAOx3 SR with BBB on the monitor denies cp at this time. Left radial cath site dressing c/d/i + ppp no evidence of hematoma.
--- NOTE | 2025-07-09 16:15 | CARDSERVDEF ---
Echocardiogram with Definity completed after protocol screening completed. Allergies verified.
Patent IV site: _Right wrist site clear____
IV site flushed with 0.9% NaCl pre and post administration.
Diluted bolus method utilized to enhance visualization of ventricular braswell.
Total volume given: __3__ mL
Patient tolerated all procedures well without complications.
--- NOTE | 2025-07-09 16:28 | ITS.CL.PN ---
Coil [facility]rapper - Procedure Note
Procedure
Procedure Note:
CARDIAC CATHETERIZATION REPORT
Date of Procedure: 07/09/2025
Referring: Dr. Woody Saab MD, PhD
Indication: known multivessel coronary artery disease, anginal chest pain
PROCEDURE(S)
1. left heart catheterization
2. coronary angiography
3. bypass graft angiography
4. aborted PCI with HOMERO to RCA
ACCESS:
1. 6F left radial artery (closure: radial band)
CATHETERS
1. 6F DAWSON
2. 6F JL4
3. 6F 3DRC
4. 6F AR1 guide
MODERATE SEDATION: 60 minutes of moderate sedation was utilized. An independent medical pathology teacher was present to assist with and help manage the patient's level of consciousness and physiologic status.
HEMODYNAMIC DATA
LV 149/19 (EDP 22) mmHg
AO 146/78 (mean 106) mmHg
CORONARY ANGIOGRAPHY
Dominance: Right
LM: large with patent stent extending into the LAD and jailing the OM.
LAD: gives rise to a moderate caliber D1. The mid-distal LAD is supplied by the patent FARRELL. The proximal LAD and first diagonal are supplied via antegrade flow via the left main. There is diffuse mild-moderate disease unchanged from 2022
angiography.
LCx: gives rise to a large OM1 supplied via the patent SVG, a small OM2, and a moderate caliber LPL branch. There is diffuse moderate disease unchanged from prior angiography.
RCA: large vessel giving rise to a moderate caliber RPDA, moderate caliber RPL1, and small RPL2. There is a widely patent stent in the proximal LAD, diffuse mild disease in the mid-LAD, a widely patent stent in the mid-distal LAD, focal distal stent
edge disease (worst in the flat GARCES projection), and diffuse mild-moderate disease throughout the distal branch vessels. The distal stent edge lesion is possibly mildly progressed on direct comparison of equivalent views from 2022. In a flat GARCES
projection (not obtained on prior angiograms), the RCA stenosis appears eccentrically 60%.
BYPASS GRAFT ANGIOGRAPHY:
FARRELL-LAD: the FARRELL is taken as a pedicle and forms a patent anastomosis with the mid-LAD
SVG-OM1: patent to its anastomosis with the mid-OM1
Attempted PCI with HOMERO to RCA
Given new typical anginal symptoms and possible progressive disease in the ungrafted distal RCA, the decision was made to proceed with PCI. An AR1 guide catheter was used to intubated the RCA. Heparin was given to achieve ACT greater than 300. A
Runthrough wire would not easily navigate to the distal branch vessels. A Whisper wire was successfully placed in the RPDA. A 2.0x12 mm balloon would not advance past the proximal stent. This was a result of the presence of prior stent in a tortuous
segment of the proximal vessel as well as the inadequate support offered by the AR1 guide. For this reason a GuideLiner was placed and balloon assisted tracking and inch-worming attempted to achieve distal GuideLiner position. Despite multiple
attempts, balloon assisted tracking and inch-worming were unsuccessful in advancing the GuideLiner distally. A Runthrough zaria wire was placed successfully in the RPDA. Over the Whisper wire, a balloon was now able to be advanced into the distal
stent but not beyond the lesion. It became apparent that delivering equipment to the distal lesion would require more aggressive techniques with more guide support, likely from groin access. The patient was hemodynamically stable and the lesion
appeared unchanged on repeat angiography. Given the stable appearance of the lesion, its uncertain contribution to the patient's symptoms, as well as his severe hypertension during the case suggesting a potential role for further medical
optimization, the decision as made to forgo more aggressive techniques (groin access, 7F supportive guide, possible need for proximal lesion modification / bailout stenting in order to deliver distally) and attempt medical management with plan for
dedicated femoral access PCI in the future should patient have continued symptoms and proven inferior ischemia. The wire and guide were removed and the patient taken off the table.
RADIATION: dose 1170 mGy; DAP 71.5 Gy*cm2; fluoroscopy time 27.7 min
CONCLUSIONS/RECOMMENDATIONS:
1. Optimal medical management of possible anginal chest pain (will start amlodipine 5 mg today, may need to reduce non anti-anginal BP meds to make more room for anti-anginals)
2. Non-invasive assessment for ischemic in the RCA territory (inferior wall) with nuc stress test.
3. If patient continues to have exertional angina despite optimal medical therapy and demonstrates ischemia in the inferior wall on nuc stress test, PCI with HOMERO to RCA would be reasonable. This should be accomplished with 7F supportive guide
(XBRCA, AL0.75/1) and delivery techniques (GuideLiner, zaria wire, Wiggle wire, anchor balloon, etc.) from the groin to facilitate equipment delivery through the tortuous, previously stented RCA.
Copy to: Dr. Woody Saab MD, PhD ([employer]); Dr. Dee Dee Kumar MD (PCP)
Signed: Marcell Dowling MD, PhD
[2025-07-09 16:32] LABS: Glucose - Point of Care 242 mg/dl (70-99)
[2025-07-09] MEDS: FLOMAX 0.4 MG PO (16:40)
[2025-07-09] MEDS: APRESOLINE 50 MG PO ×2 (16:40→21:54)
[2025-07-09] MEDS: AMARYL 2 MG PO (16:40)
[2025-07-09] MEDS: CRESTOR 40 MG PO (16:40)
[2025-07-09] MEDS: NOVOLOG FLEXPEN-MODERATE RESISTANCE 3 UNITS SC (16:51)
--- NOTE | 2025-07-09 20:00 | PTCARENOTE ---
Received pt from previous shift. Systems reviewed, see flowsheets. Pt lying comfortably in bed with no new complaints at this time. Denies chest pain at this time, but does report feeling some 'tightness'. L radial access dressing c/d/i. L radial
pulse normal to palpation. NSR with BBB on heart monitor. Will continue to monitor.
[2025-07-09] MEDS: TOPROL XL 100 MG PO (20:12)
[2025-07-09 22:05] LABS: Glucose - Point of Care 196 mg/dl (70-99)
[2025-07-10 03:18] VITALS: BP 147/83
[2025-07-10 04:09] LABS: Hematocrit 40.3 % (39.0-52.0); Hemoglobin 12.9 g/dL (13.0-18.0); Mean Corp Hgb Conc. 32.0 g/dL (33.0-37.0); Mean Corpuscular Volume 89.2 fL (80.0-94.0); Platelet Count 171 10^3/uL (130-400); Red Cell Dist. Width 14.5 % (11.5-14.5)
[2025-07-10 04:34] LABS: Blood Urea Nitrogen 15 mg/dl (9-20); Calcium 9.0 mg/dl (8.4-10.2); Carbon Dioxide 27 mmol/L (22-30); Chloride 106 mmol/L (98-107); Estimated Creatinine Clearance 84 ml/min; Glucose 150 mg/dl (70-99); HDL Cholesterol 47 mg/dl; LDL Cholesterol, Calculated 57 mg/dl; Magnesium 2.0 mg/dl (1.6-2.3); Potassium 4.1 mmol/L (3.5-5.1); Sodium 140 mmol/L (135-145); Very Low Density Lipoprotein 34 mg/dl (0-30); eGFR > 60.00
[2025-07-10 07:13] VITALS: BP 147/79
[2025-07-10 08:45] LABS: Glucose - Point of Care 153 mg/dl (70-99)
--- NOTE | 2025-07-10 09:00 | W.PN.CARDCBS ---
Addendum entered and electronically signed by Marcell Dowling MD 07/10/25 13:22:
Seen and examined. I agree with the note by DAWN Soto.
Patient feeling well. No further chest pain.
VSS.
Labs stable.
Echo 07/10/2025:
1. Contrast was used.
2. Normal biventricular size and systolic function, with no regional wall motion abnormalities. Estimated LVEF 60-65%.
3. Mild/moderate tricuspid regurgitation. Estimated pulmonary artery pressure of 35 mmHg assuming a right atrial pressure of 3 mmHg. Normal PASP.
4. Compared to 08/13/24: tricuspid regurgitation looks mild/moderate, compared to mild previously.
Will discharge patient with plan for further titration of medical therapy for angina. Will consider non-invasive ischemia testing. If inferior ischemia and symptoms not improved with maximally tolerated anti-anginal therapy, will consider RCA PCI
from femoral access.
Original Note:
Today's Communication / Plan
-
Continue medical therapy for CAD/microvascular Angina
oob ambulate
home this afternoon
Impression / Plan
-
PCP: Regulo Kumar MD
CDY: Woody Saab MD, PhD
Impression/Plan:
#CAD/anginal chest pain - underwent LHC yesterday with patent grafts and stents with mildly increased stenosis at distal edge of RCA stent, attempted PCI but unsuccessful via Radial approach
New start to amlodipine yesterday with decrease in pain this am. Monitor BP with new med and may need to reduce hydralazine dosing if hypotensive, keep log at home
Plan will be if pt continues to have exertional angina will do non invasive assessment for RCA territory ischemia, if positive then will reattempt PCI of distal RCA which will be a high risk procedure
continue DAPT ASA/Plavix, metoprolol 100mg bid, rosuvastatin
Echo with EF 60-65%, no WMA, mild-mod TR
oob ambulate
f/u cbc in 2 weeks
#Hyperlipidemia - LDL 57 continue rosuvastatin 40mg daily, TG 172 reinforced Mediterranean diet
#GERD/Lee esophagus - continue Dexilant, f/u GI for mild anemia, continue ferrous sulfate
#DM2 - Hold Metformin 48hrs post cath, continue glimepiride and Jardiance
#NAVIN/L CEA
#RBBB
#PAD
Plan for d/c home this afternoon
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
Subjective
Date of Service: July 10, 2025
denies sob, mild chest tightness but much improved from yesterday
Objective
Labs:
07/10/25 03:27
07/10/25 03:27
Labs
Hgb 12.9 g/dL (13.0-18.0) L 07/10/25 03:27
Hct 40.3 % (39.0-52.0) 07/10/25 03:27
Plt Count 171 10^3/uL (130-400) 07/10/25 03:27
Sodium 140 mmol/L (135-145) 07/10/25 03:27
Potassium 4.1 mmol/L (3.5-5.1) 07/10/25 03:27
BUN 15 mg/dl (9-20) 07/10/25 03:27
Creatinine 0.8 mg/dL (0.7-1.3) 07/10/25 03:27
Glucose 150 mg/dl (70-99) H 07/10/25 03:27
Vital Signs and I&O:
Vital Signs
Temp Pulse Resp BP Pulse Ox
98.5 F 76 20 147/83 96
07/10/25 07:13 07/10/25 05:00 07/10/25 07:13 07/10/25 03:18 07/10/25 07:13
Vital Signs
Temp Pulse Resp BP Pulse Ox
98.5 F 76 20 147/83 96
07/10/25 07:13 07/10/25 05:00 07/10/25 07:13 07/10/25 03:18 07/10/25 07:13
Intake & Output
07/08/25 07/09/25 07/10/25 07/11/25
06:59 06:59 06:59 06:59
Output Total 600 / 600
Balance -600 / -600
Physical Exam
Physical Exam
NAD< aOX3
S1, S2, RRR
CTAB, non labored, no wheeze
SNTND Bsx4
L rad site c/d/i no HT, good pulse
[2025-07-10] MEDS: AMARYL 2 MG PO (09:06)
[2025-07-10] MEDS: TOPROL XL 100 MG PO (09:06)
[2025-07-10] MEDS: NORVASC 5 MG PO (09:06)
[2025-07-10] MEDS: PROTONIX 40 MG PO (09:06)
[2025-07-10] MEDS: APRESOLINE 50 MG PO (09:07)
[2025-07-10] MEDS: FARXIGA 10 MG PO (09:07)
[2025-07-10] MEDS: ASPIR LOW (ENTERIC COATED) 81 MG PO (09:07)
[2025-07-10] MEDS: PLAVIX 75 MG PO (09:07)
[2025-07-10 10:25] LABS: Glycohemoglobin (HgbA1c) 7.5 % (4.0-5.9)
[2025-07-10] MEDS: NOVOLOG FLEXPEN-MODERATE RESISTANCE 1 UNITS SC ×2 (10:35→14:08)
--- NOTE | 2025-07-10 11:35 | CM ---
Chart reviewed. Patient is independent of ADLS, lives at home with his in a 1 STH, 4-5 [place], 0 DME. Plan is for the patient to return home. CM to follow
[2025-07-10 11:53] VITALS: BP 122/63
[2025-07-10 13:25] LABS: Glucose - Point of Care 173 mg/dl (70-99)
--- NOTE | 2025-07-10 13:25 | W.DS.TRANS ---
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
-
Discharge Instructions:
Discharge Diagnosis/Procedures CAD, post cardiac cath
Diet Low Cholesterol,Diabetic, Carb Controlled
Driving Restrictions No driving for 24 hours
Instructions: Amlodipine
Stand-Alone Forms: DC Instructions- Cath/EP Lab
Changes to Home Medications: Yes
Discharge Medications:
DC Medications w/original date entered in [email or web address]
glimepiride 2 mg tablet 2 mg PO BID@0800,1800 Diabetes 11/17/16
dexlansoprazole 30 mg capsule,biphase delayed release (Dexilant) 60 mg PO DAILY Gastrointestinal issue 09/14/18
tamsulosin 0.4 mg capsule 0.4 mg PO QPM Urinary issue 04/02/20
aspirin 81 mg tablet,delayed release 81 mg PO DAILY Blood clot prevention/tx 04/28/20
rosuvastatin 40 mg tablet (Crestor) 40 mg PO QPM High cholesterol 04/28/20
ferrous sulfate 325 mg (65 mg iron) tablet (FeroSul) 325 mg PO DAILY Supplement 12/16/20
hydralazine 50 mg tablet 50 mg PO TID Blood pressure 12/16/20
ascorbic acid (vitamin C) 500 mg tablet (Vitamin C) 500 mg PO BID Supplement 12/02/21
clopidogrel 75 mg tablet 75 mg PO DAILY Blood clot prevention/tx 12/02/21
empagliflozin 10 mg tablet (Jardiance) 10 mg PO DAILY Diabetes 12/02/21
metformin 1,000 mg tablet 1,000 mg PO BID@0800,1800 ##0 12/02/21
Held on 07/09/25. Instructions: Resume on 07/11/25.
metoprolol succinate 100 mg tablet,extended release 24 hr 100 mg PO BID Heart disease/condition 12/02/21
nitroglycerin 0.4 mg sublingual tablet 0.4 mg sublingual [id number] PRN chest pain 12/02/21
coenzyme Q10 100 mg tablet 100 mg PO QPM 06/02/22
vitamin D3 125 mcg (5,000 unit)-folic acid 1 mg tablet 1 tab PO DAILY 06/02/22
amlodipine 5 mg tablet 5 mg PO DAILY #90 tabs 07/09/25
vibegron 75 mg tablet (Gemtesa) 75 mg PO DAILY 07/09/25
Home Medication Changes
new to amlodipine
Pending Results: No
--- NOTE | 2025-07-10 14:55 | PTCARENOTE ---
~[id number]: Handoff report received from nightshift RN. Pt AOx4, NSR BBB 80s-90s on tele, SBP 140s, RA satting 96%. Pt states Chest 'tightness' 1/10 at this time that has persisted since yesterday, providers are aware. +2 radial/+1 doppler DP
pulses, no edema notes. L radial puncture site CDI and soft. Pt independent in room. All needs met at this time, call plasencia within reach.
~[id number]: Patient independent in room. VSS. at bedside. DC orders in. DC paperwork reviewed with patient and , all questions answered to the best of my knowledge. Patient dc'd in stable condition to home.
== END 2025-07-10 14:55 | disposition home or self-care (01) ==
LOC: CATH 06:23
PROVIDERS: Nurse Practitioner Adult Health; ATTENDING PHYSICIAN Student in an Organized Health Care Education/Training Program; FAMILY PHYSICIAN Internal Medicine; OTHER PHYSICIAN Internal Medicine
DX: I25.110 Atherosclerotic heart disease of native coronary artery with unstable angina pectoris (principal); Z95.1 Presence of aortocoronary bypass graft; I10 Essential (primary) hypertension; E78.5 Hyperlipidemia, unspecified; D64.9 Anemia, unspecified; E11.51 Type 2 diabetes mellitus with diabetic peripheral angiopathy without gangrene; I08.3 Combined rheumatic disorders of mitral, aortic and tricuspid valves; I45.10 Unspecified right bundle-branch block; K22.70 Barrett's esophagus without dysplasia; Z71.3 Dietary counseling and surveillance; Z79.02 Long term (current) use of antithrombotics/antiplatelets; Z79.899 Other long term (current) drug therapy; Z79.82 Long term (current) use of aspirin; Z95.5 Presence of coronary angioplasty implant and graft; Z86.73 Personal history of transient ischemic attack (TIA), and cerebral infarction without residual deficits; Z79.84 Long term (current) use of oral hypoglycemic drugs; E78.1 Pure hyperglyceridemia; I25.2 Old myocardial infarction
CPT/HCPCS: 99152; 99153; 80048; 80061; 82962; 83036; 83735; 85027; 85347; 92920; 93005; 93306; 93459; C1725; C1769; C1887; C1894; Q9957; Q9967

== ENCOUNTER → 2025-07-21 12:19 | Outpatient (REF) | payer MEDICARE, SELFPAY | LOC: HWRCS 12:19 | PROVIDERS: ATTENDING PHYSICIAN Internal Medicine; FAMILY PHYSICIAN Internal Medicine | DX: Z95.5 Presence of coronary angioplasty implant and graft (principal); I25.118 Atherosclerotic heart disease of native coronary artery with other forms of angina pectoris; Z95.1 Presence of aortocoronary bypass graft | CPT/HCPCS: 78452; 93017; A9500; J2785 ==

== ENCOUNTER 2025-07-21 17:09 | Inpatient (IN) | payer MEDICARE, SELFPAY ==
[2025-07-21] VITALS (9 sets, daily range): BP systolic 104–177; BP diastolic 60–85; BMI 28.1; BMI 27.3
--- NOTE | 2025-07-21 15:54 | ED.GENMED ---
History of Present Illness
<Mandie Mcgarry MD - Last Filed: 07/21/25 23:13>
General
Chief Complaint: Chest Pain
Source: patient
Exam Limitations: none
Time Seen by Provider: 07/21/25 15:46
Nursing documentation reviewed up to this point in time: agreed with
<Alexandra Vargas MD, Resident - Last Filed: 07/21/25 23:07>
History of Present Illness
History of Present Illness:
75yo M with a hx of CAD (s/p stenting x5, CABG), HLD, HTN, COPD, & T2DM who presents from nuclear stress testing with ongoing chest pain.
Pt had cardiac cath on 07/09, which demonstrated likely obstruction in RCA distribution, with recommendation for further w/u with stress testing. Pt began amlodipine following cath & was sent for nuclear stress testing to eval for CP and inform
planning for potential stenting. Per pt, he has had constant pressure/pain in L chest since the cath, which was present this morning & prevented technicians from starting the stress test. He was instead sent to ED for further w/u. Pt states that
chest pain/pressure worsens with exertion (taking out trash, walking uphill) but has never fully resolved. Rates his current CP as a 2/10. Denies taking nitro for sx mgmt. Denies SOB.
07/09 cath report:
RECOMMENDATIONS:
1. Optimal medical management of possible anginal chest pain (will start amlodipine 5 mg today, may need to reduce non anti-anginal BP meds to make more room for anti-anginals)
2. Non-invasive assessment for ischemic in the RCA territory (inferior wall) with nuc stress test.
3. If patient continues to have exertional angina despite optimal medical therapy and demonstrates ischemia in the inferior wall on nuc stress test, PCI with HOMERO to RCA would be reasonable. This should be accomplished with 7F supportive guide
(XBRCA, AL0.75/1) and delivery techniques (GuideLiner, zaria wire, Wiggle wire, anchor balloon, etc.) from the groin to facilitate equipment delivery through the tortuous, previously stented RCA.
Past History
<Mandie Mcgarry MD - Last Filed: 07/21/25 23:13>
Past History
ED Past Medical History: CAD, COPD, HTN, Hypercholesterolemia, NIDDM and Valvular disease
ED Past Surgical History: Cardiac (CABG), Orthopedic and Other (CEA)
Social History
Tobacco: Smoker
Alcohol: None
Drug: None
Personal:
Living: with family
Employment: Other
Family History
Family History: Other
Review of Systems
<Mandie Mcgarry MD - Last Filed: 07/21/25 23:13>
Review of Systems
Allergies reviewed?: Yes
Constitutional: Reports no symptoms
EENT: Reports no symptoms
Respiratory: Reports no symptoms
Cardiac: Reports chest pain
ABD/GI: Reports no symptoms
: Reports no symptoms
Musculoskeletal: Reports no symptoms
Skin: Reports no symptoms
Neurological: Reports no symptoms
Endocrine: Reports no symptoms
Hematologic/Lymphatic: Reports no symptoms
Psychiatric: Reports no symptoms
<Alexandra Vargas MD, Resident - Last Filed: 07/21/25 23:07>
Review of Systems
All Other Systems: ROS reviewed and negative except as documented in HPI and ROS
Phy Exam
<Mandie Mcgarry MD - Last Filed: 07/21/25 23:13>
General Physical Exam
General Hydration: appears well hydrated
Pulmonary Exam
Pulmonary Exam: lungs clear
Gastrointestinal Exam
Gastrointestinal Exam: non tender and no pulsatile mass
Neurological Exam
Neurological Exam: alert and no motor deficits
Musculoskeletal Exam
Musculoskeletal Exam: full ROM and no edema
Skin Exam
Skin Exam: normal color
Psychiatric Exam
Psychiatric Exam: normal mood/affect
<Alexandra Vargas MD, Resident - Last Filed: 07/21/25 23:07>
General Physical Exam
General Presentation: well appearing and no apparent distress
General age: appears stated age
General Skin: warm and dry
General Mental: alert
Cardiovascular Exam
Cardiovascular Exam: regular rate/rhythm and no edema
Scores
<Mandie Mcgarry MD - Last Filed: 07/21/25 23:13>
Heart Score for Chest Pain Patients
Heart Score for Chest Pain Patients: 5
Heart Score Risk: 20.3% MACE over next 6 weeks
<Alexandra Vargas MD, Resident - Last Filed: 07/21/25 23:07>
Heart Score for Chest Pain Patients
STEMI patient?: No
History: Slightly or Non-Suspicious
ECG: Normal
Age: >/= 65 years
Risk Factors: >/= 3 Risk Factors or History of CAD
Troponin: >1 - <3 x Normal Limit
Heart Score for Chest Pain Patients: 5
Heart Score Risk: 20.3% MACE over next 6 weeks
Course
<Mandie Mcgarry MD - Last Filed: 07/21/25 23:13>
Orders/Labs/Results
Orders:
Orders
07/21/25 Dinner
Cholesterol Lowering
At Your Request: Full Participation
07/21/25 15:33
EKG [Electrocardiogram (*1)] Urgent
Reason for Study: Chest Pain
EKG- Treatment ONCE
07/21/25 15:57
Complete Blood Count/With Diff Urgent
Comprehensive Metabolic Panel Urgent
PT/INR [Prothrombin Time] Urgent
PTT Urgent
Troponin I Urgent
07/21/25 16:43
Heparin 4,000 units IV NOW STA
Heparin Protocol- PTT Orders As Directed
PTT per Heparin protocol: -Obtain CBC and baseline PTT - if not already collected.
-Obtain PTT 6 hours from start of infusion. Then, every 6 hours until 2 consecutive
PTT's are therapeutic. Then, PTT Daily.
-With each rate change, obtain PTT every 6 hours until 2 consecutive PTT's are
therapeutic. Then, PTT Daily.
Notify MD As Directed
Notify physician if: PTT is greater than or equal to 200.
07/21/25 16:45
Heparin 66801 Units/250 ml 25,000 units in 250 ml IV PER PROTOCOL
Weight to be used for heparin protocol in kilograms (kg):: 86.2
Protocol:: Cardiac Tx/Acute Coronary
PTT Goal Range to be used:: PTT 73 to 111 seconds
Order type:: Initial
INITIAL Infusion Dose (UNITS/KG/hr) & then follow protocol:: 12 units/kg/hr
Infusion Dose in UNITS/hr & then follow protocol (UNITS/hr):: 1,000
INFUSION RATE in mL/hr & then follow protocol (mL/hr):: 10
PTT less than or equal to 64 seconds:: Increase rate by 200 units/hr (+ 2 mL/hr)
PTT 64.1 to 72.9 seconds:: Increase rate by 100 units/hr (+ 1 mL/hr)
PTT 73 to 111 seconds:: Target Range. No change in rate.
PTT 111.1 to 130.9 seconds:: Decrease rate by 100 units/hr (- 1 mL/hr)
PTT 131 to 199.9 seconds:: HOLD for 1 hr. Then decrease rate by 200 units/hr (- 2 mL/hr)
PTT greater than or equal to 200 seconds:: HOLD for 2 hrs & Notify Provider. Then decrease by 200 units/hr (-
2 mL/hr)
Lab follow-up:: Each change, PTT q6h until 2 consecutive are therapeutic. Then PTT
daily.
Nitroglycerin 100 mg/250 ml [Nitroglycerin Premix] 100 mg in 250 ml IV PER PROTOCOL
Initial dose in mcg/min, then titrate:: 5
Titrate to keep:: Chest Pain Free
Titrate by mcg/min:: 5 mcg/min, may increase by 10 mcg/min if dose > 20 mcg/min
Frequency of titrations (minutes):: every 3-5 minutes
Maximum dose in mcg/min:: 200
Begin to taper infusion when:: Remained at goal for 2hrs
Taper by mcg/min:: 5 mcg/min
Frequency of taper (minutes) if patient maintains goal:: 30
Taper to off?: Yes
If infusion off & no longer maintaining goal:: Contact Provider
07/21/25 16:46
Admit/Transfer Patient As Directed
Co-Sign Provider:
Level of Care: Inpatient admission
Assign to:: IVU
Physician / Group: CBC
Diagnosis: ACS
Reason for Hospitalization: ACS
Expected length of stay greater than two midnights?: Yes
ELOS- Estimated Length of Stay in days: 3
I certify the patient meets the requirements for IP care: Yes
Acetaminophen [Tylenol] 650 mg PO NOW STA
07/21/25 16:47
PRN Pain Medication Management As Directed
May give lesser potent ordered pain med per pt: Yes
preference::
Protocol:: Medication orders for pain may be administered in a
manner that supports deferring to patient preference
when the pt is:
- Requesting an ordered lesser potent pain medication.
Least to most potent pain medications are defined
as: acetaminophen < NSAID < tramadol < opioids
(morphine, oxycodone, hydromorphone).
- Requesting a lesser dose of the same medication IF
ORDERED.
- Requesting a less intrusive route of administration
if both routes are prescribed by the provider (PO <
IV).
07/21/25 16:48
Code Status As Directed
Resuscitation Status: Full Code
07/21/25 18:01
Acetaminophen [Tylenol] 650 mg PO Q4HPRN PRN
07/21/25 18:01
DVT Contraindication [VTE Contraindication] Routine
VTE Mechanical Device Contraindication: Medical Contraindication
Pharmocologic Contraindication: Medical Contraindication
Activity As Directed
Activity Level: As Tolerated
EKG with chest pain [ECG as needed] As Directed
ECG as needed for:: Chest Pain
INT (Intravenous Needle Therapy) As Directed
Intake/ Output As Directed
Frequency: Per unit guidelines
Weight As Directed
Frequency: Once
Type of Scale: Standing Scale
07/22/25 00:05
Troponin I Q6H
07/22/25 06:00
EKG [Electrocardiogram (*1)] IN AM
Reason for Study: CAD
NPO
Allow oral meds: Yes
Allow clear liquids: No
BMP [Basic Metabolic Panel] IN AM
07/22/25 06:05
Troponin I Q6H
07/23/25 06:00
EKG [Electrocardiogram (*1)] IN AM
Reason for Study: CAD
BMP [Basic Metabolic Panel] IN AM
Complete Blood Count/No Diff Q2D
Comment: Notify MD if platelet count is <130,000 or decreases by 50% from baseline
07/24/25 06:00
BMP [Basic Metabolic Panel] IN AM
07/25/25 06:00
Complete Blood Count/No Diff Q2D
Comment: Notify MD if platelet count is <130,000 or decreases by 50% from baseline
07/27/25 06:00
Complete Blood Count/No Diff Q2D
Comment: Notify MD if platelet count is <130,000 or decreases by 50% from baseline
07/29/25 06:00
Complete Blood Count/No Diff Q2D
Comment: Notify MD if platelet count is <130,000 or decreases by 50% from baseline
07/31/25 06:00
Complete Blood Count/No Diff Q2D
Comment: Notify MD if platelet count is <130,000 or decreases by 50% from baseline
08/02/25 06:00
Complete Blood Count/No Diff Q2D
Comment: Notify MD if platelet count is <130,000 or decreases by 50% from baseline
08/04/25 06:00
Complete Blood Count/No Diff Q2D
Comment: Notify MD if platelet count is <130,000 or decreases by 50% from baseline
08/06/25 06:00
Complete Blood Count/No Diff Q2D
Comment: Notify MD if platelet count is <130,000 or decreases by 50% from baseline
Abnormal Lab Results
07/21/25
15:57
MCHC 32.3 L g/dL
(33.0-37.0)
Lymphocytes % 17.3 L %
(20.5-51.1)
Carbon Dioxide 32 H mmol/L
(22-30)
Glucose 147 H mg/dl
(70-99)
Troponin I 0.039 H* ng/ml
Albumin 5.1 H g/dl
(3.5-5.0)
07/21/25 15:57
07/21/25 15:57
Vital Signs
Initial and Last Documented VS:
Initial Vital Signs
Temp Pulse Resp BP
98 F 94 16 152/72
07/21/25 15:36 07/21/25 15:36 07/21/25 15:36 07/21/25 15:36
Last Documented Vital Signs
Temp Pulse Resp BP Pulse Ox
97.8 F 84 20 109/60 96
07/21/25 22:04 07/21/25 22:58 07/21/25 22:04 07/21/25 22:58 07/21/25 22:04
<Alexandra Vargas MD, Resident - Last Filed: 07/21/25 23:07>
Orders/Labs/Results
Orders:
Orders
07/21/25 Dinner
Cholesterol Lowering
At Your Request: Full Participation
07/21/25 15:33
EKG [Electrocardiogram (*1)] Urgent
Reason for Study: Chest Pain
EKG- Treatment ONCE
07/21/25 15:57
Complete Blood Count/With Diff Urgent
Comprehensive Metabolic Panel Urgent
PT/INR [Prothrombin Time] Urgent
PTT Urgent
Troponin I Urgent
07/21/25 16:43
Heparin 4,000 units IV NOW STA
Heparin Protocol- PTT Orders As Directed
PTT per Heparin protocol: -Obtain CBC and baseline PTT - if not already collected.
-Obtain PTT 6 hours from start of infusion. Then, every 6 hours until 2 consecutive
PTT's are therapeutic. Then, PTT Daily.
-With each rate change, obtain PTT every 6 hours until 2 consecutive PTT's are
therapeutic. Then, PTT Daily.
Notify MD As Directed
Notify physician if: PTT is greater than or equal to 200.
07/21/25 16:45
Heparin 65653 Units/250 ml 25,000 units in 250 ml IV PER PROTOCOL
Weight to be used for heparin protocol in kilograms (kg):: 86.2
Protocol:: Cardiac Tx/Acute Coronary
PTT Goal Range to be used:: PTT 73 to 111 seconds
Order type:: Initial
INITIAL Infusion Dose (UNITS/KG/hr) & then follow protocol:: 12 units/kg/hr
Infusion Dose in UNITS/hr & then follow protocol (UNITS/hr):: 1,000
INFUSION RATE in mL/hr & then follow protocol (mL/hr):: 10
PTT less than or equal to 64 seconds:: Increase rate by 200 units/hr (+ 2 mL/hr)
PTT 64.1 to 72.9 seconds:: Increase rate by 100 units/hr (+ 1 mL/hr)
PTT 73 to 111 seconds:: Target Range. No change in rate.
PTT 111.1 to 130.9 seconds:: Decrease rate by 100 units/hr (- 1 mL/hr)
PTT 131 to 199.9 seconds:: HOLD for 1 hr. Then decrease rate by 200 units/hr (- 2 mL/hr)
PTT greater than or equal to 200 seconds:: HOLD for 2 hrs & Notify Provider. Then decrease by 200 units/hr (-
2 mL/hr)
Lab follow-up:: Each change, PTT q6h until 2 consecutive are therapeutic. Then PTT
daily.
Nitroglycerin 100 mg/250 ml [Nitroglycerin Premix] 100 mg in 250 ml IV PER PROTOCOL
Initial dose in mcg/min, then titrate:: 5
Titrate to keep:: Chest Pain Free
Titrate by mcg/min:: 5 mcg/min, may increase by 10 mcg/min if dose > 20 mcg/min
Frequency of titrations (minutes):: every 3-5 minutes
Maximum dose in mcg/min:: 200
Begin to taper infusion when:: Remained at goal for 2hrs
Taper by mcg/min:: 5 mcg/min
Frequency of taper (minutes) if patient maintains goal:: 30
Taper to off?: Yes
If infusion off & no longer maintaining goal:: Contact Provider
07/21/25 16:46
Admit/Transfer Patient As Directed
Co-Sign Provider:
Level of Care: Inpatient admission
Assign to:: IVU
Physician / Group: CBC
Diagnosis: ACS
Reason for Hospitalization: ACS
Expected length of stay greater than two midnights?: Yes
ELOS- Estimated Length of Stay in days: 3
I certify the patient meets the requirements for IP care: Yes
Acetaminophen [Tylenol] 650 mg PO NOW STA
07/21/25 16:47
PRN Pain Medication Management As Directed
May give lesser potent ordered pain med per pt: Yes
preference::
Protocol:: Medication orders for pain may be administered in a
manner that supports deferring to patient preference
when the pt is:
- Requesting an ordered lesser potent pain medication.
Least to most potent pain medications are defined
as: acetaminophen < NSAID < tramadol < opioids
(morphine, oxycodone, hydromorphone).
- Requesting a lesser dose of the same medication IF
ORDERED.
- Requesting a less intrusive route of administration
if both routes are prescribed by the provider (PO <
IV).
07/21/25 16:48
Code Status As Directed
Resuscitation Status: Full Code
07/21/25 18:01
Acetaminophen [Tylenol] 650 mg PO Q4HPRN PRN
07/21/25 18:01
DVT Contraindication [VTE Contraindication] Routine
VTE Mechanical Device Contraindication: Medical Contraindication
Pharmocologic Contraindication: Medical Contraindication
Activity As Directed
Activity Level: As Tolerated
EKG with chest pain [ECG as needed] As Directed
ECG as needed for:: Chest Pain
INT (Intravenous Needle Therapy) As Directed
Intake/ Output As Directed
Frequency: Per unit guidelines
Weight As Directed
Frequency: Once
Type of Scale: Standing Scale
07/22/25 00:05
Troponin I Q6H
07/22/25 06:00
EKG [Electrocardiogram (*1)] IN AM
Reason for Study: CAD
NPO
Allow oral meds: Yes
Allow clear liquids: No
BMP [Basic Metabolic Panel] IN AM
07/22/25 06:05
Troponin I Q6H
07/23/25 06:00
EKG [Electrocardiogram (*1)] IN AM
Reason for Study: CAD
BMP [Basic Metabolic Panel] IN AM
Complete Blood Count/No Diff Q2D
Comment: Notify MD if platelet count is <130,000 or decreases by 50% from baseline
07/24/25 06:00
BMP [Basic Metabolic Panel] IN AM
07/25/25 06:00
Complete Blood Count/No Diff Q2D
Comment: Notify MD if platelet count is <130,000 or decreases by 50% from baseline
07/27/25 06:00
Complete Blood Count/No Diff Q2D
Comment: Notify MD if platelet count is <130,000 or decreases by 50% from baseline
07/29/25 06:00
Complete Blood Count/No Diff Q2D
Comment: Notify MD if platelet count is <130,000 or decreases by 50% from baseline
07/31/25 06:00
Complete Blood Count/No Diff Q2D
Comment: Notify MD if platelet count is <130,000 or decreases by 50% from baseline
08/02/25 06:00
Complete Blood Count/No Diff Q2D
Comment: Notify MD if platelet count is <130,000 or decreases by 50% from baseline
08/04/25 06:00
Complete Blood Count/No Diff Q2D
Comment: Notify MD if platelet count is <130,000 or decreases by 50% from baseline
08/06/25 06:00
Complete Blood Count/No Diff Q2D
Comment: Notify MD if platelet count is <130,000 or decreases by 50% from baseline
Abnormal Lab Results
07/21/25
15:57
MCHC 32.3 L g/dL
(33.0-37.0)
Lymphocytes % 17.3 L %
(20.5-51.1)
Carbon Dioxide 32 H mmol/L
(22-30)
Glucose 147 H mg/dl
(70-99)
Troponin I 0.039 H* ng/ml
Albumin 5.1 H g/dl
(3.5-5.0)
07/21/25 15:57
07/21/25 15:57
Vital Signs
Initial and Last Documented VS:
Initial Vital Signs
Temp Pulse Resp BP
98 F 94 16 152/72
07/21/25 15:36 07/21/25 15:36 07/21/25 15:36 07/21/25 15:36
Last Documented Vital Signs
Temp Pulse Resp BP Pulse Ox
97.8 F 84 20 109/60 96
07/21/25 22:04 07/21/25 22:58 07/21/25 22:04 07/21/25 22:58 07/21/25 22:04
<Mandie Mcgarry MD - Last Filed: 07/21/25 23:13>
MDM/Problems Addressed
Differential Diagnosis Includes:
Stable angina (given well-appearance/comfortable & exacerbation w exertion) vs. unstable angina (given CP at rest) , pneumonia, CHF
EKG r/o STEMI or NSTEMI
Chronic conditions affecting care: CAD
Acute Exacerbation and/or Progression of Chronic Illness:
Patient likely presents with acute exacerbation of chronic coronary artery disease, causing him to have pain at rest and worsening pain with exertion
<Alexandra Vargas MD, Resident - Last Filed: 07/21/25 23:07>
MDM/Problems Addressed
Differential Diagnosis Includes:
Stable angina (given well-appearance/comfortable & exacerbation w exertion) vs. unstable angina (given CP at rest)
EKG r/o STEMI or NSTEMI
MDM/Problems Addressed:
Plan:
- EKG
- Trend troponins
- CBC/CMP
- Consult cards for eval, likely PCI
- Nitro for sx mgmt if pain worsens
<Mandie Mcgarry MD - Last Filed: 07/21/25 23:13>
*Pulse Oximetry
Oxygen Mode of Delivery: Room air
Patient hypoxic: no
*EKG
Interpreted by ED Provider?: Yes
Interpretation: abnormal
Comparison EKG: no changes
Rate: normal
Rhythm: sinus
[place]: normal axis
Interval: normal interval
QRS Pattern: right bundle branch block
Ischemia: non-specific ST changes
*Egg Processing Supervisor Interpretation
Rate: normal
Interpretation: normal
Rhythm: sinus
*Critical Care Note
Total Time (30-74mins, 75-104mins- exclusive of procedures): Not Applicable
Data Reviewed
Review of Other/Old Records Reveals: Testing (Reviewed cardiac cardiac catheterization from this month which showed RCA occlusion)
Source: patient
<Mandie Mcgarry MD - Last Filed: 07/21/25 23:13>
Patient Management
Social determinants of health affecting care: Living situation and Strong social support
Discussion with other providers: Other (Dr. Jaimes made aware of patient being in the ED after his stress test was canceled earlier today. She agreed to evaluate the patient at the bedside)
<Alexandra Vargas MD, Resident - Last Filed: 07/21/25 23:07>
Update Note
Update Note:
Troponin elevated 0.039
ED Attending Note
<Mandie Mcgarry MD - Last Filed: 07/21/25 23:13>
ED Attending Note
Patient seen and examined by attending physician: Yes
I performed a history and physical exam of patient and discussed management with resident, I reviewed resident's note and agree with documented findings and plan of care.: Yes
ED Attending Note:
Patient appears well and comfortable. Heart sounds regular lungs are clear. Patient reports 2 out of 10 chest pressure. Admitting team has put order in for heparin and nitro drip
-
Portions of this chart may have been created with voice recognition software.� Occasional wrong word or��sound alike� substitutions may have occurred due to the inherent limitations of voice recognition software.
Discharge Plan
Departure
Patient Disposition: Admit
Date of Disposition: 07/21/25
Time of Disposition: 16:53
Admit to: Telemetry
Admit to doctor: Dr. Jaimes
Presentation/result/management discussed w/ accepting MD/DO: Dr. Jaimes
Patient with high blood pressure during this ER visit?: Yes
Condition: Good
Covid-19: Not Applicable
Discharge Problem:
Unstable angina
Interventions
Interventions:
*Risk Screen - Suicide Last Done: 07/21/25 15:36
*General Assessment Last Done: 07/21/25 15:56
*Neglect/Abuse Screening Last Done: 07/21/25 15:36
*ED- Fall Risk Assessment Last Done: 07/21/25 15:56
*ED COVID-19 Vaccine History Last Done: 07/21/25 15:56
*ED Influenza Vaccine History Last Done: 07/21/25 15:56
*Nursing Disposition Last Done: 07/21/25 18:13
ED- Cardiac Assessment Last Done: 07/21/25 15:56
Discharge Date and Time
Discharge Date/Time: 07/21/25 18:17
[2025-07-21 16:14] LABS: Hematocrit 45.8 % (39.0-52.0); Hemoglobin 14.8 g/dL (13.0-18.0); Mean Corp Hgb Conc. 32.3 g/dL (33.0-37.0); Mean Corpuscular Volume 88.6 fL (80.0-94.0); Nucleated Red Blood Cells % 0 % (-); Platelet Count 206 10^3/uL (130-400); Red Cell Dist. Width 14.5 % (11.5-14.5)
[2025-07-21 16:18] LABS: APTT 32.6 Sec (23.4-35.0); INR 1.00; PT 13.5 Sec (11.4-14.6)
[2025-07-21 16:34] LABS: Troponin I 0.039 ng/ml
[2025-07-21 16:39] LABS: ALT (SGPT) 22 U/L (0-50); AST (SGOT) 21 U/L (17-59); Albumin 5.1 g/dl (3.5-5.0); Alkaline Phosphatase 54 U/L (38-126); Blood Urea Nitrogen 19 mg/dl (9-20); Calcium 9.8 mg/dl (8.4-10.2); Carbon Dioxide 32 mmol/L (22-30); Chloride 101 mmol/L (98-107); Estimated Creatinine Clearance 79 ml/min; Glucose 147 mg/dl (70-99); Potassium 3.9 mmol/L (3.5-5.1); Sodium 144 mmol/L (135-145); Total Protein 7.9 g/dl (6.3-8.2); eGFR > 60.00
--- NOTE | 2025-07-21 16:57 | HPS.HSE ---
Addendum entered and electronically signed by Tl Jaimes MD 07/21/25 17:20:
I saw and evaluated the patient, and I provided the substantive portion of the medical decision making.
I reviewed and agree with the note by [ ] and it accurately reflects our care.
I personally performed the medical decision making of the this encounter and my assessment and plan is below:
75-year-old gentleman with a past medical history of CAD described below, right bundle branch block, PAD status post left carotid endarterectomy, hypertension, diabetes and Lee's esophagus presents for chest pain. He had originally presented to
the [facility] for a stress test but he complained of chest pain in the setting of a small to medium sized mild intensity perfusion defect of the inferior wall. He had recently been admitted in the first week of this month for chest
pain. At that time he had a left heart cath but an attempted PCI of the RCA stent was unsuccessful. Plan was to use medical management or have him return if symptoms were continued. He reports he has had constant chest pain 2 out of 10 that feels
like a tightness since he left. However over the past week, he has had increasing dyspnea on exertion and chest pain with exertion especially when he tries to bring out his garbage cans.
On exam he has a regular rate and rhythm with a normal S1-S2 no murmur rubs gallops were appreciated. Lungs are clear to auscultation. Extremities are warm well-perfused.
EKG showed sinus rhythm with right bundle branch block.
Troponin significant for initial level of 0.039 BUN is 19 creatinine 0.8 hemoglobin 14.8 platelet count 206.
Assessment:
ACS: Ongoing rest chest pain that is worse with exertion, will begin heparin drip and nitro drip to get him pain-free. Plan is for a repeat attempt of RCA intervention tomorrow. N.p.o. after midnight. Continue aspirin and Plavix. Trend troponin.
Continue high-dose statin.
Diabetes: On oral agents, will hold metformin and Jardiance. Will provide sliding scale coverage.
Hypertension: Continue chronic agents
Admit to the IVU. ACS is a risk to life. He will need constant and intensive monitoring.
Original Note:
Family Physician
-
Family Physician: Main Kumar
Primary soundscriber mechanic: Dr. Saab
Chief Complaint
-
Chest pain
History of Present Illness
Vijay Linn is a 75 year old male (known to Dr. Saab, his primary soundscriber mechanic), with CAD (s/p prior RCA stent, POBA to RPL, NSTEMI and stents to ramus and R AV groove on 09/17/18, then unstable angina and CABG on 05/05/20, then LM stent 12/2021), rate
dependent RBBB, mild/moderate right carotid stenosis, left carotid artery stenosis s/p L CEA, PAD, HTN, DM, dyslipidemia, Lee's esophagus presents with chest pain. On 07/09/2025, he had a cardiac catheterization. The plan was for medical
management of his chest pain along with a noninvasive assessment for ischemia in his RCA territory with a Lexiscan nuclear stress test. He presented to the [facility] today for Lexiscan nuclear stress test. Rest images obtained and
showed small to medium sized mild in intensity perfusion defect in the basal to mid inferior wall, possibly secondary to diaphragmatic/bowel attenuation artifact. The stress portion was canceled due to active chest pain and he was referred to the
emergency department. He is still having intermittent left anterior chest pressure. It is currently 1/10 in severity. It is not radiating. No associated symptoms of shortness of breath, palpitations, dizziness, nor diaphoresis. He was also
found to have an abnormal troponin.
Medical History
Past Medical History
Past Medical History: Reports CAD, HTN, Hypercholesterolemia, NIDDM and Other (PAD)
Additional Past Medical History:
Lee's esophagus, PAD, left CEA, right NAVIN
Past Surgical History: Reports Other (Left CEA)
Social History
Tobacco: Former Smoker
Alcohol: None
Drug: None
Living: With Family
Family History
Family History: Not pertinent
Allergies / Home Medications
Allergies reflects when Allergies were last updated in [facility] [employer].
Home Medications with original date entered in [facility]
Allergy/Medication List:
Allergies/intolerances:
Isosorbide causes headache
Valsartan causes headache and nausea
Home medication list:
Amlodipine 5 mg daily
Aspirin 81 mg daily
B12
Clopidogrel 75 mg daily
CoQ10 100 mg p.o. daily
Dexilant 60 mg p.o. daily
Zetia 10 mg daily
Ferrous sulfate 325 mg p.o. daily
Gemtesa 75 mg p.o. daily
Glimepiride 2 mg p.o. twice daily
Hydralazine 50 mg 3 times daily
Jardiance 10 mg p.o. daily
Metformin 1000 mg p.o. twice daily
Metoprolol succinate 100 mg p.o. twice daily
Rosuvastatin 40 mg daily
Tamsulosin 0.4 mg p.o. daily
Vitamin C 1000 mg p.o. daily
Vitamin D 50 mcg p.o. daily
Review of Systems
-
History Source: Patient
A 12 point ROS was completed and negative except as noted: Yes
Constitutional: Reports No Symptoms
EENT: Reports No Symptoms
Respiratory: Reports No Symptoms
Cardiac: Reports See HPI
Abdomen/GI: Reports No Symptoms
: Reports No Symptoms
Musculoskeletal: Reports No Symptoms
Skin: Reports No Symptoms
Neurological: Reports No Symptoms
Endocrine: Reports No Symptoms
Hematologic/Lymphatic: Reports No Symptoms
Psych: Reports No Symptoms
Physical Exam
Vital Signs
Vital Signs
Temp Pulse Resp BP Pulse Ox
98 F 86 21 152/76 98
07/21/25 15:36 07/21/25 16:00 07/21/25 16:00 07/21/25 16:00 07/21/25 15:56
Physical Exam
General: Well Developed, Well Nourished, No Apparent Distress and Comfortable
HEENT: NormoCephalic, Anicteric and Moist mucous membranes
Respiratory: Clear and Non Labored Respirations
Cardiac: S1/S2 and Regular Rhythm; No Murmur or Peripheral Edema
Breast: Deferred by me
GI: Soft, Non Tender, Non Distended and Normal Bowel Sounds
Rectal: Deferred by Provider
Genito-urinary: No costovertebral tender
Musculoskeletal: No Clubbing, No Cyanosis and No Edema
Skin: Warm and Dry
Neuro: AO x 3
Hematologic/Lymphatic: No Lymphadenopathy
Psych: Calm
Laboratory Results
-
07/21/25 15:57
07/21/25 15:57
Laboratory Results
PT 13.5 Sec (11.4-14.6) 07/21/25 15:57
INR 1.00 07/21/25 15:57
APTT 32.6 Sec (23.4-35.0) 07/21/25 15:57
Total Bilirubin 0.8 mg/dl (0.2-1.3) 07/21/25 15:57
AST 21 U/L (17-59) 07/21/25 15:57
ALT 22 U/L (0-50) 07/21/25 15:57
Alkaline Phosphatase 54 U/L (38-126) 07/21/25 15:57
Troponin I 0.039 ng/ml H* 07/21/25 15:57
Data Reviewed
-
Diagnostic Radiology: Report Reviewed by me
Medical Tests (Nuc Med, Echo, EKG etc): Report Reviewed by me
Lab Data: Labs Reviewed by me
Old Records: Reviewed
Impression/Plan
-
I/P: 75M with CAD (s/p prior RCA stent, POBA to RPL, NSTEMI and stents to ramus and R AV groove on 09/17/18, then unstable angina and CABG on 05/05/20, then LM stent 12/2021), rate dependent RBBB, mild/moderate right carotid stenosis, left carotid
artery stenosis s/p L CEA, PAD, HTN, DM, dyslipidemia, Lee's esophagus presents with chest pain prior to stress testing.
Primary soundscriber mechanic: Dr. Saab
NSTEMI
- He had pain while getting an outpatient Lexiscan nuclear stress test and was referred to the ER, rest images obtained
- Trend troponin and EKG
- Start heparin drip with bolus
- Start nitroglycerin drip and titrate until chest pain-free
- Plan for RCA intervention tomorrow with interventional cardiology, NPO after midnight
CAD with prior interventions & CABG
- Continue aspirin, rosuvastatin, and metoprolol
- RCA intervention tomorrow as above
Type II DM, with hyperglycemia
- Hold Metformin
- Hgba1c 7.5%
Dyslipidemia
- TC 138, HDL 47, LDL 57, TG 172
- Continue rosuvastatin and Zetia
Tricuspid regurgitation, mild to moderate
Carotid artery disease, s/p L CEA, moderate disease on the right, managed by Vascular
PAD, managed by Vascular
RBBB, rate dependent
[2025-07-21] MEDS: TYLENOL 650 MG PO (17:08)
[2025-07-21] MEDS: HEPARIN 4000 UNITS IV (17:16)
[2025-07-21] MEDS: HEPARIN 25000 UNITS/250 ML IV (17:17)
[2025-07-21] MEDS: NITROGLYCERIN PREMIX 250 IV (17:18)
[2025-07-21 18:27] LABS: Glucose - Point of Care 95 mg/dl (70-99)
[2025-07-21] MEDS: CRESTOR 40 MG PO (18:27)
[2025-07-21] MEDS: FLOMAX 0.4 MG PO (18:27)
[2025-07-21] MEDS: AMARYL 2 MG PO (18:27)
--- NOTE | 2025-07-21 18:29 | PTCARENOTE ---
Received patient from the ED with ACS, patient recently discharged from and failed outpatient stress test. IV heparin infusing at 1000 units/hr, IV NTG infusing at 5mcg/min. Patient rates pain currently 1/10 left sided but has difficulty
describing it, is cheerful and conversive at this time. Oriented to the room and plan of care, call plasencia in reach, monitoring VS.
[2025-07-21] MEDS: TOPROL XL 100 MG PO (20:35)
[2025-07-21 22:42] LABS: Glucose - Point of Care 220 mg/dl (70-99)
[2025-07-21] MEDS: APRESOLINE 50 MG PO (22:58)
[2025-07-22] VITALS (28 sets, daily range): BP systolic 89–177; BP diastolic 52–96
[2025-07-22 00:41] LABS: APTT 103.2 Sec (23.4-35.0)
[2025-07-22 00:53] LABS: Troponin I 0.028 ng/ml
--- NOTE | 2025-07-22 04:00 | PTCARENOTE ---
Assumed care on pt at 1900, aaox3, resting in bed with no complaints of cp/ palpitations or SOB. Afib on tele, HR 60-70's. Pox 95% RA. Tikosyn 250mcg adm at 1999, EKG obtained as per protocol. Call plasencia within reach, POC ongoing.
--- NOTE | 2025-07-22 04:19 | DOWNTIME ---
There was a [employer] Downtime on 07/22/2025 from 0100 to 07/22/2025 at 0255. Downtime documentation of patient's care, including medication administrations, has been reconciled in the electronic record per guidelines. Refer to the
patient's paper chart under the miscellaneous tab to see printed paper medication records and downtime forms.
--- NOTE | 2025-07-22 06:40 | PTCARENOTE ---
Bp 173/109 At approx 0500 this morning, pt asymptomatic. call center specialist CT PA made aware, new order to give 0800 dose of cozaar.
[2025-07-22 06:43] LABS: APTT 63.7 Sec (23.4-35.0)
--- NOTE | 2025-07-22 06:44 | PTCARENOTE ---
Recieved pt at change of shift, aaox3, resting in bed with no complaints. Heparin infusing at 1000 unit/hr , Nitro gtt infusing at 5mcg/min, pt rating chest discomfort as 1/10, no s/s of distress noted. Bp stable. SR w/ bb on tele, HR 80's. Call
plasencia within reach, POC ongoing.
[2025-07-22 07:36] LABS: Blood Urea Nitrogen 24 mg/dl (9-20); Calcium 9.1 mg/dl (8.4-10.2); Carbon Dioxide 30 mmol/L (22-30); Chloride 105 mmol/L (98-107); Estimated Creatinine Clearance 79 ml/min; Glucose 133 mg/dl (70-99); Potassium 3.8 mmol/L (3.5-5.1); Sodium 141 mmol/L (135-145); eGFR > 60.00
[2025-07-22 08:21] LABS: Glucose - Point of Care 126 mg/dl (70-99)
[2025-07-22] MEDS: NOVOLOG FLEXPEN-LOW RESISTANCE SC ×2 (09:43→18:28)
[2025-07-22] MEDS: AMARYL PO (09:44)
[2025-07-22] MEDS: PLAVIX 75 MG PO (09:44)
[2025-07-22] MEDS: TOPROL XL 100 MG PO ×2 (09:45→20:02)
[2025-07-22] MEDS: PROTONIX 40 MG PO (09:45)
[2025-07-22] MEDS: FEOSOL 325 MG PO (09:45)
[2025-07-22] MEDS: ASPIR LOW (ENTERIC COATED) 81 MG PO (09:45)
[2025-07-22] MEDS: APRESOLINE 50 MG PO ×2 (09:46→18:28)
[2025-07-22] MEDS: NORVASC 5 MG PO (09:46)
--- NOTE | 2025-07-22 11:00 | CM ---
spoke to pt in room, he is pre vindep, lives with his in a 1 story home with 4 steps to enter. he denies any dc planning needs or dme's. plan is for dc to home when medically stable.
[2025-07-22 11:56] LABS: Glucose - Point of Care 160 mg/dl (70-99)
[2025-07-22] MEDS: NOVOLOG FLEXPEN-LOW RESISTANCE 1 UNITS SC (12:23)
[2025-07-22 13:36] LABS: APTT 67.7 Sec (23.4-35.0)
[2025-07-22 16:55] LABS: ACT-LR - POC 380 Seconds (116-155)
--- NOTE | 2025-07-22 17:57 | ITS.CL.ANGIO ---
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
Angioplasty
Procedure Report:
CARDIAC CATHETERIZATION REPORT
Date of Procedure: 07/22/2025
Referring: Skylar Jaimes M.D.
INDICATION: Non-ST elevation myocardial infarction.
PROCEDURE:
1. Selective angiography of the right coronary artery.
2. Successful PCI of the distal right coronary artery.
3. Successful PCI of the mid RCA stent edge.
4. Successful PCI of the proximal RCA stent edge.
A total of 86 minutes of procedural/moderate sedation was utilized. An independent medical detail representative was present to assist with and help manage the patient's level of consciousness and physiologic status.
ACCESS:
1. 7 Hungarian right common femoral artery using a modified Seldinger technique with a micropuncture kit under ultrasound guidance.
CATHETERS:
1. 7 Hungarian AL 1.0 guiding catheter.
HEMODYNAMIC DATA
Weight (kg): 83.5
AO (s/d/x, mmHg): 184/75/125
LV (s/x mmHg): Not obtained.
AV gradient (x, mmHg): Not obtained.
LEFT VENTRICULOGRAPHY: Not performed.
CORONARY ANGIOGRAPHY
Dominance: Right.
Left Main: Not injected. Known to be a large vessel with a patent stent extending into the LAD jailing the circumflex.
LAD: Not injected. Known to be a normal size vessel giving rise to at least 1 significant diagonal. There is diffuse disease in the proximal and mid LAD. The mid/distal LAD is supplied by patent FARRELL graft.
Ramus: Congenitally absent.
Circumflex: Not injected. Known to be a large size, nondominant vessel giving rise to 2 obtuse marginals. OM1 is a medium to large vessel that arises very high on the circumflex, nearly as a ramus. There is a 70% lesion in the ostium of
this vessel. A patent stent is present in the proximal portion of the first obtuse marginal. There is a 70% lesion in the ostium of the true AV groove circumflex immediately after the origin of OM1. The first obtuse marginal is supplied by a
patent vein graft.
RCA: Large size, dominant vessel. A patent stent is observed in the proximal RCA with haziness in its proximal margin. There is moderate disease in the mid RCA that leads to another patent stent in the distal margin of the mid RCA. There
is infolding and haziness in the proximal margin of the mid RCA stent. Immediately distal to the stented segment, there is a densely calcified, 80-90% lesion in the mid/distal RCA at the crux. This was appreciated on prior films, particularly on
an GARCES projection. There is a 60% lesion in the distal RPL.
BYPASS GRAFT ANGIOGRAPHY
FARRELL to LAD: Not injected. Known to be a normal size graft with end-to-side anastomosis to the mid LAD. As of 07/09/2025, there was no evidence of stenosis or graft degeneration.
SVG to OM1: Not injected. Known to be a normal size graft with end-to-side anastomosis to the first obtuse marginal. As of 07/09/2025, there was no evidence of stenosis or graft degeneration.
INTERVENTION(S)
1. Successful PCI of the densely calcified 80-90% mid/distal crux RCA lesion (Xience Skypoint 3.25 x 15 HOMERO, postdilated with a 3.5 NC balloon) with reduction in stenosis to 0%, maintaining YUNIOR-3 flow.
2. Successful PCI of the hazy, likely 70% mid RCA proximal stent edge lesion (Xience Skypoint 3.25 x 8 HOMERO, postdilated with a 3.5 NC balloon) with reduction in stenosis to 0%, maintaining YUNIOR-3 flow.
3. Successful PCI of the hazy, likely 70% proximal RCA proximal stent edge lesion (Xience Skypoint 3.5 x 18 HOMERO, postdilated with a 3.5 NC balloon) with reduction in stenosis to 0%, maintaining YUNIOR-3 flow.
Narrative:
The decision was made to proceed with percutaneous coronary intervention. The 7 Hungarian AL 1.0 guiding catheter was advanced to the aortic root and seated in the right coronary artery. Additional heparin was given and a Power Turn Flex wire was
advanced into the distal RCA with some difficulty. A quick cross microcatheter was advanced over the power turn flex wire to assess the ability of the wire to trans late equipment movement. Unfortunately, the quick cross microcatheter would not
progress beyond the mid RCA stent. The quick cross microcatheter was withdrawn and a whisper wire was advanced through the guide and into the distal RCA as a zaria wire. A 6 Hungarian guide liner was advanced over both wires but would not move beyond
the proximal margin of the proximal RCA stent. A 1.25 x 12 semicompliant balloon was advanced over the power turn flex wire, but would not cross the proximal margin of the mid RCA stent, similar to the quick cross microcatheter. Given the behavior
of the microcatheter as well as the balloon, I became concerned that the power turn flex wire may be partially behind the stent struts of the infolded stent.
The whisper wire had entered the distal vessel much more easily. The 1.25 x 12 semicompliant balloon was removed from the power turn flex and readvanced over the whisper wire. This time, the balloon entered the distal RCA, beyond the 80-90% crux
lesion with relative ease. Given the satisfactory position of the balloon and stent, the power turn flex wire was removed to avoid any braiding. The 80-90% proximal RCA lesion was dilated to 12 benito. With the wire and balloon in position, we
attempted to advance the GuideLiner. Again, the GuideLiner would not advance beyond the proximal stent margin. The semicompliant balloon was removed and the quick cross microcatheter was readvanced over the whisper wire with the intention of
swapping the wire for an extra-support wire. Unfortunately, the microcatheter continue to struggle advancing through the right coronary artery and was removed. A 3.0 x 12 semicompliant balloon was advanced into the RCA and was able to enter the
crux lesion, again with relative ease. The crux lesion was dilated to 12 benito. The balloon was pulled back into the mid RCA stent and the infolded segment of the stent was dilated to 12 benito. The balloon was subsequently pulled back into the
proximal stent and the proximal stent margin was dilated to 12 benito. As the 3.0 x 12 semicompliant balloon was deflated in the proximal stent margin, the GuideLiner was advanced into sheathing technique, this time passing into the stented segment.
We repeated this process with the proximal margin of the mid RCA stent, allowing the GuideLiner to progress to the crux lesion. The 3.0 x 12 semicompliant balloon was withdrawn.
The densely calcified 80-90% proximal RCA lesion was predilated with a 3.0 x 12 noncompliant balloon to 18 benito with release of the lesion. The noncompliant balloon was removed and a Xience Skypoint 3.25 x 15 drug-eluting stent was advanced.
Meticulous care was taken while positioning the stent, ensuring that the lesion was covered and that the proximal stent edge overlapped with the distal stent margin of the previously placed stent. When we were satisfied with our position, the stent
was deployed at 12 atmospheres. The stent balloon was removed. A 3.5 x 12 noncompliant balloon was advanced into the stent and the stent was postdilated to 20 atmospheres.
We then turned our attention to the proximal stent edge lesions and the previously placed stents. After predilating the stent edges of the proximal and mid RCA stents, it became clear that there was obstructive disease in these areas, be that true
atherosclerosis versus infolding or underexpansion of those stented segments. With the GuideLiner in place, a 3.25 x 8 drug-eluting stent was advanced into the mid RCA stent. We took care to place the stent in the proximal margin of the previously
placed stent. It was clear that a 3.25 stent was slightly undersized for this vessel. The 3.5 x 12 noncompliant balloon was readvanced into the new stent, overlapping with the previously placed stent. This stent was postdilated to 15 benito with
excellent expansion.
The GuideLiner was pulled back to the level of the proximal stent. The proximal RCA stent was dilated to 15 benito with the noncompliant balloon which was subsequently removed. A Xience Skypoint 3.5 x 18 drug-eluting stent was advanced. Meticulous
care was taken while positioning the stent, ensuring that the stented segment would be adequately covered, particularly in its proximal and middle margin where there was significant difficulty advancing the GuideLiner. When we were satisfied with
our position, the stent was deployed to 12 benito. The 3.5 x 12 noncompliant balloon was readvanced and the entire stented segment was postdilated to 12 benito. It is notable that with these interventions, the ability to advance equipment through both
of the previously placed stents dramatically improved. The winged 3.5 x 12 noncompliant balloon was able to traverse the entire vessel with only minimal difficulty. The noncompliant balloon was withdrawn after postdilation.
Angiography was performed in orthogonal views, confirming good stent expansion and an excellent angiographic result. The coronary wire was withdrawn and the guide was disengaged from the artery. The catheter was removed over a standard J-wire.
Closure Device: None. The 7 Hungarian sheath was sutured in place to be pulled when ACT is <180 seconds and blood pressure is reliably controlled. There is substantial peripheral arterial disease making placement of an internal closure device
and unacceptable risk.
Radiation (mGy): 1081.18
DAP (cm2.Gy): 73.1240
Fluoroscopy time (minutes): 24.9
CONCLUSIONS
1. Right dominant circulation with a patent stent in the left main into the LAD, moderate to severe diffuse disease in the proximal/mid LAD, a 70% lesion in the ostium of the AV groove circumflex, a 70% lesion in the ostium of OM1, a patent stent
in the proximal portion of OM1, a patent stent in the proximal RCA with a hazy proximal stent edge lesion, likely 70% though underappreciated on angiography, moderate diffuse disease in the mid RCA, a patent stent in the distal mid RCA with evidence
of infolding and a hazy, likely 70% proximal stent edge lesion as well as a densely calcified, 80-90% lesion in the mid/distal RCA at the crux and a 60% lesion in the distal RPL.
2. Status post successful PCI of the culprit, densely calcified 80-90% RCA crux lesion (Xience Skypoint 3.25 x 15 HOMERO, postdilated with a 3.5 NC balloon), successful PCI of the hazy mid RCA proximal stent lesion/infolding (Xience Skypoint 3.25 x 8
HOMERO, postdilated with a 3.5 NC balloon) and successful PCI of the hazy, likely 70% proximal RCA stent edge lesion (Xience Skypoint 3.5 x 18 HOMERO, postdilated with a 3.5 NC balloon) with reduction in all treated stenoses to 0%, maintaining YUNIOR-3 flow.
RECOMMENDATIONS:
1. Expectant management after cardiac catheterization via right common femoral approach.
2. Limited weight bearing for one week.
3. Maintain femoral sheath position until ACT is <180 seconds and blood pressure is reliably controlled.
4. Dual antiplatelet therapy with aspirin and clopidogrel for at least 12 months, likely lifelong given his burden of coronary artery disease.
5. Aggressive secondary prevention with high-dose, high potency statin. Goal LDL <55.
6. OMT/GDMT as hemodynamics will tolerate.
7. Referral to cardiac rehab.
Copy to: Skylar Jaimes M.D., Facundo Saab M.D., Ph.D., Gerardo Kumar M.D.
Vimal Garza DO, FACC, FACP
[2025-07-22 18:15] LABS: Glucose - Point of Care 138 mg/dl (70-99)
[2025-07-22] MEDS: CRESTOR 40 MG PO (18:28)
[2025-07-22] MEDS: FARXIGA PO (18:28)
[2025-07-22] MEDS: AMARYL 2 MG PO (18:29)
[2025-07-22] MEDS: FLOMAX 0.4 MG PO (18:29)
[2025-07-22 18:54] LABS: ACT-LR - POC 213 Seconds (116-155)
--- NOTE | 2025-07-22 19:20 | PTCARENOTE ---
Pt taken to cardiac laboratory coordinator @16:10 and returned @18:00 post PCI done via right femoral artery. Femoral sheath sutured in place, no sign of bleeding or hematoma, ACT >200 at @19:00. Nitroglycerin infusion at 10mcg's , SBP's 150-170. Pt denies any
discomfort. Plan to remove sheath when ACT <180. Pt and his family state understanding of the plan. Pt voiding without difficulty. Telemetry shows sinus rhythm.
[2025-07-22 20:00] LABS: ACT-LR - POC 187 Seconds (116-155)
[2025-07-22] MEDS: NSS 1000 IV (20:32)
[2025-07-22] MEDS: ROXICODONE 5 MG PO (21:28)
[2025-07-22] MEDS: APRESOLINE PO (21:45)
[2025-07-22] MEDS: TYLENOL 650 MG PO (23:00)
--- NOTE | 2025-07-22 23:37 | PTCARENOTE ---
Patient received at change of shift resting in the bed. Right groin site with arterial sheath C/D/I, pedal pulse weak to palpation but normal with doppler. Nitroglycerin gtt initially infusing at 10mcg/min since returning from the laborer/grade check, titrated
down to 5mcg/min and then promptly turned off this shift due to hypotension. Post PCI IVF infusing as ordered. Dr. Garza in to see the patient and aware of hypotension. Arterial sheath zeroed and low BPs correlated with BP cuff. Per Dr. Garza the
arterial sheath is to remain in throughout the night, possible removal tomorrow morning at his discretion. Patient educated on strict bedrest and keeping his lower extremities straight. The patient reported a mild chest ache which was acceptable to
him, Dr. Garza OK with nitroglycerin remaining off. The patient reported severe neck pain (patient has had issues with neck pain from a previous fall), PRN oxycodone and acetaminophen administered, see MAR. SR on telemetry. Oxygen saturation 95-96%
on RA. Patient voiding clear yellow urine. Call plasencia within reach. HOB and activity restrictions maintained. Call plasencia within reach. Care ongoing.
[2025-07-23] VITALS (25 sets, daily range): BP systolic 112–170; BP diastolic 54–115
[2025-07-23 00:01] LABS: Glucose - Point of Care 223 mg/dl (70-99)
[2025-07-23] MEDS: ROXICODONE 5 MG PO (02:34)
[2025-07-23 03:03] LABS: Hematocrit 36.8 % (39.0-52.0); Hemoglobin 11.8 g/dL (13.0-18.0); Mean Corp Hgb Conc. 32.1 g/dL (33.0-37.0); Mean Corpuscular Volume 88.9 fL (80.0-94.0); Platelet Count 154 10^3/uL (130-400); Red Cell Dist. Width 14.6 % (11.5-14.5)
[2025-07-23 03:17] LABS: Blood Urea Nitrogen 18 mg/dl (9-20); Calcium 8.7 mg/dl (8.4-10.2); Carbon Dioxide 25 mmol/L (22-30); Chloride 106 mmol/L (98-107); Estimated Creatinine Clearance 90 ml/min; Glucose 226 mg/dl (70-99); Potassium 3.9 mmol/L (3.5-5.1); Sodium 139 mmol/L (135-145); eGFR > 60.00
[2025-07-23] MEDS: TYLENOL 650 MG PO (03:17)
[2025-07-23 07:45] LABS: ACT-LR - POC > 397 Seconds (116-155)
--- NOTE | 2025-07-23 07:49 | W.PN.CD ---
Today's Communication / Plan
-
Monitor repeat CBC.
Restart home anti-hypertensives.
If access site remains hemodynamically stable, we can look to discharge.
Impression / Plan
-
Impression/Plan: 75 y/o male vasculopath with known NAVIN, prior CAD s/p CABG (FARRELL to LAD, SVG to OM1) and multiple PCIs (proximal RCA, mRCA, Ramus, LMCA) admitted after failure of medical management of densely calcified crux RCA lesion and
development of unstable angina.
#CAD/Unstable angina
-Chronic, progressive.
-S/P CABG (FARRELL to LAD, SVG to OM).
-S/P prior PCI (LMCA, Ramus, pRCA, mRCA).
-Densely calcified crux RCA lesion was attempted during last hospitalization, but support of equipment was lacking and there was skepticism about the lesion's severity. He was trialed on medical management with outpatient perfusion ordered to
assess for ischemic burden. Patient presented for SPECT describing chest pain, prompting cancellation of test and referral to ER.
-Chest pain stabilized with nitro gtt.
-Subsequently underwent PCI of the 80-90% dRCA lesion via RCFA using a 7FR AL1 system (Xience Skypoint 3.25 x 15 HOMERO, post dilated with 3.5 NCB).
-S/P PCI of the proximal margin of the mRCA stent due to infolding/stenosis (Xience Skypoint 3.25 x 8 HOMERO, psot dilated with a 3.5 NCB) and the proximal margin of the pRCA stent for hazy stenosis/dampening on catheter engagement (Xience Skypoint
3.5 x 18 HOMERO, post dilated with 3.5 NCB).
-DAPT with aspirin and clopidogrel for at least 12 months, possibly lifelong given burden of CAD and PAD.
-High dose, high potency statin and ezetimibe.
-Continue metoprolol.
#NAVIN
-Chronic, stable.
-Secondary prevention and antiplatelet therapy as above.
#PAD
-Chronic, observed on ultrasound and angiography of the RCFA.
-Not a good candidate for internal closure of ADDICTION THERAPIST.
-Sheath pulled this morning without issue.
-Drop in Hbg noted, but all cell lines dropped - I suspect lab error in the absence of clinical blood loss. PLANT GUIDE ordere repeat CBC.
#HTN
-Chronic, uncontrolled.
-Nitro gtt for acute control.
-Continue metoprolol.
-Restart hydralazine, amlodipine.
#Dispo
-IVU status.
-Full code.
-Discharge planning.
Subjective/Interval History:
Patient admitted with unstable angina, stabilized on nitro gtt.
Cardiac catheterization and PCI of the densely calcified crux RCA lesion as well as the proximal stent margins (proximal and mid RCA stents) to stabilized edge stenoses/infolding.
Sheath left in place overnight due to significant PAD seen on ultrasound and angiography, hypertension.
Sheath pulled this morning without issue.
DATA:
Cardiac catheterization/PCI, 07/22/2025:
CONCLUSIONS
1. Right dominant circulation with a patent stent in the left main into the LAD, moderate to severe diffuse disease in the proximal/mid LAD, a 70% lesion in the ostium of the AV groove circumflex, a 70% lesion in the ostium of OM1, a patent stent
in the proximal portion of OM1, a patent stent in the proximal RCA with a hazy proximal stent edge lesion, likely 70% though underappreciated on angiography, moderate diffuse disease in the mid RCA, a patent stent in the distal mid RCA with evidence
of infolding and a hazy, likely 70% proximal stent edge lesion as well as a densely calcified, 80-90% lesion in the mid/distal RCA at the crux and a 60% lesion in the distal RPL.
2. Status post successful PCI of the culprit, densely calcified 80-90% RCA crux lesion (Xience Skypoint 3.25 x 15 HOMERO, postdilated with a 3.5 NC balloon), successful PCI of the hazy mid RCA proximal stent lesion/infolding (Xience Skypoint 3.25 x 8
HOMERO, postdilated with a 3.5 NC balloon) and successful PCI of the hazy, likely 70% proximal RCA stent edge lesion (Xience Skypoint 3.5 x 18 HOMERO, postdilated with a 3.5 NC balloon) with reduction in all treated stenoses to 0%, maintaining YUNIOR-3 flow.
Physical Exam
Vital Signs/Labs
Vital Signs
Temp Pulse Resp BP Pulse Ox
36.6 C 81 20 156/74 95
07/23/25 07:27 07/23/25 07:15 07/23/25 07:27 07/23/25 07:00 07/23/25 07:27
07/21/25 07/22/25 07/23/25
11:59 11:59 11:59
Actual Weight 83.9 kg
07/23/25 02:19
07/23/25 02:19
PT 13.5 Sec (11.4-14.6) 07/21/25 15:57
INR 1.00 07/21/25 15:57
APTT Cancelled 07/22/25 19:50
LAB Results
07/21/25 07/22/25 07/22/25
15:57 00:23 06:05
Troponin I 0.039 H* 0.028 Cancelled
Physical Exam
Constitutional: No acute distress and Comfortable
EENT: Anicteric and Moist mucous membranes
Cardiovascular: Rhythm & rate is regular, Pedal edema is absent, JVD pressure is normal, S1S2 is normal and Murmur/rub/gallop absent
Respiratory: Respiratory effort normal, Lungs clear to auscul., Wheeze Absent, Crackles Absent and Rhonchi Absent
GI: Soft, Distention absent, Flat, Non tender and Normal bowel sounds
Neuro/Psych: AO x 3
Other: Cath Site (Right femoral access site is C/D/I.)
Data Reviewed
-
Date of Service: July 23, 2025
Medical Decision Making: Reviewed Test Results, Independent Historian Assessment and Test Interpretation
EKG: Tracing Personally Visualized and interpreted and Report Reviewed by me
Echo: Report Reviewed by me
X-Ray/CT/US/MRI/NUC/PET: Image Personally Visualized and interpreted and Report Reviewed by me
Medical Tests (PFT, Pathology etc): Image Personally Visualized and interpreted, Report Reviewed by me and Discussed with Patient
Labs: Labs Reviewed by me
Old Records: Reviewed
[2025-07-23] MEDS: PLAVIX 75 MG PO (07:54)
[2025-07-23] MEDS: ASPIR LOW (ENTERIC COATED) 81 MG PO (07:54)
[2025-07-23] MEDS: NORVASC 5 MG PO (07:54)
[2025-07-23] MEDS: FARXIGA 10 MG PO (07:54)
[2025-07-23] MEDS: FEOSOL 325 MG PO (07:55)
[2025-07-23] MEDS: TOPROL XL 100 MG PO (07:55)
[2025-07-23] MEDS: PROTONIX 40 MG PO (07:55)
[2025-07-23] MEDS: AMARYL 2 MG PO (07:55)
[2025-07-23] MEDS: APRESOLINE 50 MG PO ×2 (07:55→16:34)
[2025-07-23 08:20] LABS: Hematocrit 38.6 % (39.0-52.0); Hemoglobin 12.3 g/dL (13.0-18.0); Mean Corp Hgb Conc. 31.9 g/dL (33.0-37.0); Mean Corpuscular Volume 89.4 fL (80.0-94.0); Platelet Count 157 10^3/uL (130-400); Red Cell Dist. Width 14.6 % (11.5-14.5)
[2025-07-23 08:49] LABS: Glucose - Point of Care 107 mg/dl (70-99)
--- NOTE | 2025-07-23 09:19 | PTCARENOTE ---
Right femoral arterial sheath removed at 08:16 by physical laboratory assistant personnel with hemostasis at 08:36. Dressing dry and intact, no sign of bleeding or hematoma. Pt will remain on bedrest for 4 hours.
[2025-07-23] MEDS: NOVOLOG FLEXPEN-LOW RESISTANCE SC (09:21)
[2025-07-23 13:05] LABS: Glucose - Point of Care 220 mg/dl (70-99)
[2025-07-23] MEDS: NOVOLOG FLEXPEN-LOW RESISTANCE 2 UNITS SC (14:19)
[2025-07-23 15:04] LABS: HDL Cholesterol 44 mg/dl; LDL Cholesterol, Calculated 22 mg/dl; Very Low Density Lipoprotein 41 mg/dl (0-30)
--- NOTE | 2025-07-23 17:11 | W.DS.TRANS ---
DC Summary - [employer]
-
Discharge Instructions:
Discharge Diagnosis/Procedures Angioplasty and stent x3 to Right Coronary
artery
Diet Low Cholesterol,Diabetic, Carb Controlled
Driving Restrictions No driving for 24 hours
Other Services Cardiac Rehab
Instructions:
Stand-Alone Forms: DC Instructions- Cath/EP Lab
Changes to Home Medications: No
Discharge Medications:
DC Medications w/original date entered in [facility]
glimepiride 2 mg tablet 2 mg PO BID@0800,1800 Diabetes 11/17/16
dexlansoprazole 30 mg capsule,biphase delayed release (Dexilant) 60 mg PO DAILY Gastrointestinal issue 09/14/18
tamsulosin 0.4 mg capsule 0.4 mg PO QPM Urinary issue 04/02/20
aspirin 81 mg tablet,delayed release 81 mg PO DAILY Blood clot prevention/tx 04/28/20
rosuvastatin 40 mg tablet (Crestor) 40 mg PO QPM High cholesterol 04/28/20
ferrous sulfate 325 mg (65 mg iron) tablet (FeroSul) 65 mg PO DAILY Supplement 12/16/20
hydralazine 50 mg tablet 50 mg PO TID Blood pressure 12/16/20
ascorbic acid (vitamin C) 500 mg tablet (Vitamin C) 500 mg PO DAILY Supplement 12/02/21
clopidogrel 75 mg tablet 75 mg PO DAILY Blood clot prevention/tx 12/02/21
empagliflozin 10 mg tablet (Jardiance) 10 mg PO DAILY Diabetes 12/02/21
metformin 1,000 mg tablet 1,000 mg PO BID@0800,1800 ##0 12/02/21
Held on 07/23/25. Instructions: Resume on 07/25/25.
metoprolol succinate 100 mg tablet,extended release 24 hr 100 mg PO BID Heart disease/condition 12/02/21
coenzyme Q10 100 mg tablet 100 mg PO QPM Supplement 06/02/22
vitamin D3 125 mcg (5,000 unit)-folic acid 1 mg tablet 1 tab PO DAILY Supplement 06/02/22
amlodipine 5 mg tablet 5 mg PO DAILY #90 tabs 07/09/25
vibegron 75 mg tablet (Gemtesa) 75 mg PO DAILY OVERACTIVE BLADDER 07/09/25
ezetimibe 10 mg tablet 10 mg PO DAILY High Cholesterol 07/21/25
Home Medication Changes
Pending Results: No
--- NOTE | 2025-07-23 18:48 | PTCARENOTE ---
Pt up walking in halls once off bedrest after right femoral sheath was removed. No sign of bleeding or hematoma. Pt denied any discomfort. Pt seen by and Indira Rodrigues NP. Telemetry and IV devices removed. Discharge instructions reviewed with
pt and his regarding medications (none new), activity and driving restrictions, reproting cares and concerns and follow up appt's. Good understanding verbalized. Pt escorted out via wheelchair and discharged to home.
== END 2025-07-23 17:45 | disposition home or self-care (01) | DRG 322 ==
LOC: IVU 17:09
PROVIDERS: Internal Medicine Cardiovascular Disease; Nurse Practitioner; Nurse Practitioner Adult Health; Nurse Practitioner Gerontology; ADMITTING PHYSICIAN Internal Medicine Cardiovascular Disease; EMERGENCY PHYSICIAN Emergency Medicine; FAMILY PHYSICIAN Internal Medicine
PROC: 027036Z Dilation of Coronary Artery, One Artery with Three Drug-eluting Intraluminal Devices, Percutaneous Approach (ICD-10-PCS; 2025-07-22)
PROC: B2101ZZ Fluoroscopy of Single Coronary Artery using Low Osmolar Contrast (ICD-10-PCS; 2025-07-22)
PROC: 4A023N7 Measurement of Cardiac Sampling and Pressure, Left Heart, Percutaneous Approach (ICD-10-PCS; 2025-07-22)
DX: I21.4 Non-ST elevation (NSTEMI) myocardial infarction (principal); I25.10 Atherosclerotic heart disease of native coronary artery without angina pectoris; Z95.1 Presence of aortocoronary bypass graft; I10 Essential (primary) hypertension; Z79.82 Long term (current) use of aspirin; Z79.02 Long term (current) use of antithrombotics/antiplatelets; K22.70 Barrett's esophagus without dysplasia; I45.10 Unspecified right bundle-branch block; E11.65 Type 2 diabetes mellitus with hyperglycemia; I07.1 Rheumatic tricuspid insufficiency; E78.00 Pure hypercholesterolemia, unspecified; F17.200 Nicotine dependence, unspecified, uncomplicated; J44.9 Chronic obstructive pulmonary disease, unspecified; Z79.84 Long term (current) use of oral hypoglycemic drugs
CPT/HCPCS: 80048; 80053; 80061; 82962; 84484; 85025; 85027; 85347; 85610; 85730; 93005; 96365; 96367; 99152; 99153; 99285; C1725; C1769; C1874; C1894; C9600; Q9967

== ENCOUNTER 2025-07-29 06:26 | Outpatient (RCR) | payer MEDICARE, SELFPAY | END 2025-07-31 06:25 | disposition home or self-care (01) | LOC: RST 06:26 | PROVIDERS: ATTENDING PHYSICIAN Psychiatry & Neurology Neurology | DX: R41.89 Other symptoms and signs involving cognitive functions and awareness (principal); R47.02 Dysphasia; F07.81 Postconcussional syndrome; Z91.81 History of falling | CPT/HCPCS: 97129; 97130 ==